=== PATIENT | female | born 1930 | race Caucasian/White ===

== ENCOUNTER 2016-09-21 18:19 | Emergency (ER) | payer OTHER ==
[2016-09-21 18:39] VITALS: BP 166/86
--- NOTE | 2016-09-21 19:30 | PROVIDER DOCUMENTATION ---
HPI-General Adult - General Chief Complaint: Fever Stated Complaint: COUGH, FEVER, FLU SX Time Seen by Provider: 09/21/16 18:51 Source: patient Allergies/Adverse Reactions: Patient Allergies Allergy/AdvReac Type Severity Reaction Status Date / Time codeine [Codeine] Allergy Severe ANAPHYLAXIS Verified 09/21/16 19:42 hydromorphone HCl * AdvReac Severe HALLUCINATI Verified 09/21/16 19:42 [From Dilaudid] ONS ketamine AdvReac Severe HALLUCINATI Verified 09/21/16 19:42 ONS nickel [Nickel] AdvReac Severe "I REJECT Verified 09/21/16 19:42 IT" oxycodone HCl * AdvReac Severe HALLUCINATI Verified 09/21/16 19:42 [From Percocet] ONS Home Medications: Home Medication List Medication Instructions Recorded Confirmed Last Taken Type ATORVAstatin [Lipitor] 20 mg PO QHS 05/26/12 09/21/16 09/20/16 22:10 History Levothyroxine [Synthroid] 150 microgm PO DAILY 05/26/12 09/21/16 09/20/16 07:30 History Aspirin/Calcium Carbonate/Mag 325 mg PO DAILY 01/31/14 09/21/16 09/20/16 07:30 History [Aspirin Buffered 325 mg Tab] Zolpidem [Ambien] 5 mg PO PRN #0 02/02/14 09/21/16 09/20/16 22:15 Rx Carvedilol [Coreg] 12.5 mg PO BID #0 tablet 06/12/14 09/21/16 09/20/16 22:10 Rx Nitroglycerin Sl [Nitroglycerin] 0.4 mg SL PRN PRN 07/01/14 09/21/16 01/16/16 History Amiodarone HCl [Pacerone] 400 mg PO BID 02/16/16 09/21/16 09/20/16 22:10 History Apixaban [Eliquis] 5 mg PO BID 02/16/16 09/21/16 09/20/16 22:10 History Isosorbide Mononitrate E.r. [Imdur] 30 mg PO DAILY 02/16/16 09/21/16 09/20/16 22 :10 History Metformin E.r. [Glucophage Xr] 1,500 mg PO DAILY 02/16/16 09/21/16 09/20/16 22: 10 History Amoxicillin/Pot Clavulanate 875 mg PO Q12HR #14 tablet 09/21/16 Unknown Rx [Augmentin] Ferrous Gluconate [Fergon] 240 mg PO DAILY 09/21/16 09/21/16 09/20/16 07:30 History Furosemide [Lasix] 40 mg PO BID 09/21/16 09/21/16 09/20/16 22:10 History Ondansetron [Zofran] 4 mg PO Q6H PRN PRN #20 tablet 09/21/16 Unknown Rx Potassium Chloride [Klor-Con] 20 meq PO DAILY 09/21/16 09/21/16 09/20/16 07:30 History Trazodone [Desyrel] 50 mg PO QHS 09/21/16 09/21/16 09/20/16 22:10 History - History of Present Illness -Gen Adult Nature of Presenting Problems: 86 y/o WF c/o cough, nausea, fever/chills x 1 day. Pt states had influenza vaccine; states sick with similar sxs. Denies any other sick contacts. No other sxs reported, including urinary sxs, V/D/C, abd. pain. Cough is not productive. Fever of 100F at home. Review of Systems - Adult - REVIEW OF SYSTEMS - ADULT Constitutional: reports: see HPI, chills, fever Eyes: reports: no symptoms reported. denies: blurred vision, double vision Ears, Nose, Mouth & Throat: reports: no symptoms reported. denies: ear pain, nose pain Cardiovascular: reports: no symptoms reported. denies: chest pain, palpitations Respiratory: reports: see HPI, cough. denies: shortness of breath Gastrointestinal: reports: see HPI, nausea. denies: abdominal pain, diarrhea, vomiting Genitourinary: reports: no symptoms reported. denies: dysuria, frequency Musculoskeletal: reports: no symptoms reported. denies: joint pain, joint swelling Integumentary: reports: no symptoms reported. denies: nail changes, rash Neurological: reports: no symptoms reported. denies: numbness, paresthesia Psychiatric: reports: no symptoms reported Endocrine: reports: no symptoms reported. denies: cold intolerance, heat intolerance Hematologic/Lymphatic: reports: no symptoms reported. denies: easy bruising, prolonged bleeding Allergic/Immunologic: reports: no symptoms reported All Other Systems: Reviewed and Negative Past History - Adult - PAST MEDICAL HISTORY-ADULT Review of Records: reports: Nursing Assessment Review, Medications Reviewed Major Childhood Illnesses: reports: history unknown Cardiovascular: reports: CAD, HTN, hyperlipidemia, pacemaker, other (internal heart monitor). denies: A-Fib (atrial flutter) Musculoskeletal: reports: other (gout) Endocrine/Immune: reports: Diabetes, thyroid disorder (hypo) Other Conditions: reports: other (Gout) - PRIOR SURGERIES/PROCEDURES Surgical/Procedure History: reports: appendectomy, cardiac stent, pacemaker, orthopedic (extremity) (ORIF left ankle), joint replacement (total knee and total hip), other (cataract removal; thyroidectomy) - PRIOR HOSPITALIZATIONS Prior Hospitalizations: reports: for similar symptoms - IMMUNIZATION STATUS Childhood Immunizations: UTD Flu Vaccine: UTD - FAMILY HISTORY Family History: reviewed, not pertinent Physical Exam-General - PHYSICAL EXAM-ADULT Initial Vital Signs Reviewed: Yes - CONSTITUTIONAL General Appearance: alert, mild distress - EYES Eyes: pink conjunctivae - HEAD, EARS, NOSE, MOUTH & THROAT HENMT: normocephalic/atraumatic, moist mucous membranes, pharynx normal - NECK Neck: normal inspection - RESPIRATORY Respiratory: lungs clear, normal breath sounds. negative: crackles, rales, rhonchi, stridor, wheezing - CARDIOVASCULAR Cardiovascular: regular rate, rhythm. negative: bradycardia, tachycardia - GASTROINTESTINAL (ABDOMEN) Abdominal Exam: normal bowel sounds, non tender, soft. negative: distended, guarding, rigid - MUSCULOSKELETAL Back Exam: normal inspection Extremity: normal gait - SKIN Integumentary: normal color, normal turgor, warm/dry - NEUROLOGIC Neurologic: negative: aphasia - PSYCHIATRIC Psych/Mental Status: normal mood/affect, normal thought content, normal thought process, oriented x 3 Progress - PLAN OF CARE/RESULTS Progress/Plan/Lab Results: Laboratory Tests 09/21/16 09/21/16 09/21/16 16:12 19:55 19:55 WBC 9.24 RBC 4.46 Hgb 9.6 L Hct 32.9 L MCV 73.8 L MCH 21.5 L MCHC 29.2 L RDW Std Deviation 21.2 H Plt Count 212 MPV 10.0 Immature Gran % (Auto) 1.4 H Neut % (Auto) 86.1 H Lymph % (Auto) 4.5 L [place] % (Auto) 7.4 Eos % (Auto) 0.2 Baso % (Auto) 0.4 Immature Gran # (Auto) 0.13 H Neut # (Auto) 7.95 H Lymph # (Auto) 0.42 L [place] # (Auto) 0.68 H Eos # (Auto) 0.02 Baso # (Auto) 0.04 Sodium 134 L Potassium 2.7 L Chloride 86 L Carbon Dioxide 31 Anion Gap 17 BUN 10 Creatinine 0.8 Estimated GFR/1.73 m2 > 60 BUN/Creatinine Ratio 13 Glucose 154 H Calculated Osmolality 270 Calcium 8.4 L Total Bilirubin 1.34 H AST 106 H ALT 78 H Alkaline Phosphatase 78 Total Protein 7.2 Albumin 4.1 Globulin 3.1 Albumin/Globulin Ratio 1.3 Urine Source CLEAN CATCH Urine Color YELLOW Urine Turbidity CLEAR Urine pH 7.0 Ur Specific [place] 1.007 Urine Protein 30 A Ur Glucose (Stick) NEGATIVE Ur Ketones (Stick) NEGATIVE Urine Blood NEGATIVE Urine Nitrite NEGATIVE Urine Bilirubin NEGATIVE Urobilinogen Dipstick NORMAL Urine Leukocytes NEGATIVE Urine WBC (Auto) <10 Urine RBC (Auto) <10 U Epithel Cells (Auto) <10 Urine Bacteria (Auto) NEGATIVE Orders Category Date Time Status ABDOMEN FLAT/UPRIGHT [RAD] Stat Exams 09/21/16 19:30 Completed CHEST-2 VIEWS [RAD] Stat Exams 09/21/16 19:28 Completed CBC WITH ELECTRONIC DIFF [HEME] Stat Lab 09/21/16 19:55 Completed COMPREHENSIVE METABOLIC PANEL [CHEM] Stat Lab 09/21/16 19:55 Completed Flu Swab [INFLUENZA SCREEN A/B] Stat Lab 09/21/16 18:38 Completed URINALYSIS W/POSS RFLX CULT [URINALYSIS] Stat Lab 09/21/16 16:12 Completed Amoxicillin [Amoxil] Med 09/21/16 21:17 Discontinued 750 mg PO NOW ONE Ondansetron Odt [Zofran Odt] Med 09/21/16 21:16 Discontinued 4 mg PO NOW ONE Vital Signs Temp Pulse Resp BP Pulse Ox 09/21/16 18:36 98.7 F 79 18 166/86 99 codeine [Codeine] Allergy (Severe, Verified 09/21/16 19:42) ANAPHYLAXIS hydromorphone HCl * [From Dilaudid] Adverse Reaction (Severe, Verified 09/21/16 19:42) HALLUCINATIONS ketamine Adverse Reaction (Severe, Verified 09/21/16 19:42) HALLUCINATIONS nickel [Nickel] Adverse Reaction (Severe, Verified 09/21/16 19:42) "I REJECT IT" oxycodone HCl * [From Percocet] Adverse Reaction (Severe, Verified 09/21/16 19: 42) HALLUCINATIONS ATORVAstatin [Lipitor] 20 mg PO QHS 05/26/12 Levothyroxine [Synthroid] 150 microgm PO DAILY 05/26/12 Aspirin/Calcium Carbonate/Mag [Aspirin Buffered 325 mg Tab] 325 mg PO DAILY Zolpidem [Ambien] 5 mg PO PRN #0 02/02/14 Carvedilol [Coreg] 12.5 mg PO BID #0 tablet 06/12/14 Nitroglycerin Sl [Nitroglycerin] 0.4 mg SL PRN PRN 07/01/14 Amiodarone HCl [Pacerone] 400 mg PO BID 02/16/16 Apixaban [Eliquis] 5 mg PO BID 02/16/16 Isosorbide Mononitrate E.r. [Imdur] 30 mg PO DAILY 02/16/16 Metformin E.r. [Glucophage Xr] 1,500 mg PO DAILY 02/16/16 Amoxicillin/Pot Clavulanate [Augmentin] 875 mg PO Q12HR #14 tablet 09/21/16 Ferrous Gluconate [Fergon] 240 mg PO DAILY 09/21/16 Furosemide [Lasix] 40 mg PO BID 09/21/16 Ondansetron [Zofran] 4 mg PO Q6H PRN PRN #20 tablet 09/21/16 Potassium Chloride [Klor-Con] 20 meq PO DAILY 09/21/16 Trazodone [Desyrel] 50 mg PO QHS 09/21/16 Laboratory 09/21/16 09/21/16 09/21/16 19:55 19:55 16:12 WBC 9.24 RBC 4.46 Hgb 9.6 L Hct 32.9 L MCV 73.8 L MCH 21.5 L MCHC 29.2 L RDW Std Deviation 21.2 H Plt Count 212 MPV 10.0 Immature Gran % (Auto) 1.4 H Neut % (Auto) 86.1 H Lymph % (Auto) 4.5 L [place] % (Auto) 7.4 Eos % (Auto) 0.2 Baso % (Auto) 0.4 Immature Gran # (Auto) 0.13 H Neut # (Auto) 7.95 H Lymph # (Auto) 0.42 L [place] # (Auto) 0.68 H Eos # (Auto) 0.02 Baso # (Auto) 0.04 Sodium 134 L Potassium 2.7 L Chloride 86 L Carbon Dioxide 31 Anion Gap 17 BUN 10 Creatinine 0.8 Estimated GFR/1.73 m2 > 60 BUN/Creatinine Ratio 13 Glucose 154 H Calculated Osmolality 270 Calcium 8.4 L Total Bilirubin 1.34 H AST 106 H ALT 78 H Alkaline Phosphatase 78 Total Protein 7.2 Albumin 4.1 Globulin 3.1 Albumin/Globulin Ratio 1.3 Urine Source CLEAN CATCH Urine Color YELLOW Urine Turbidity CLEAR Urine pH 7.0 Ur Specific [place] 1.007 Urine Protein 30 A Ur Glucose (Stick) NEGATIVE Ur Ketones (Stick) NEGATIVE Urine Blood NEGATIVE Urine Nitrite NEGATIVE Urine Bilirubin NEGATIVE Urobilinogen Dipstick NORMAL Urine Leukocytes NEGATIVE Urine WBC (Auto) <10 Urine RBC (Auto) <10 U Epithel Cells (Auto) <10 Urine Bacteria (Auto) NEGATIVE Discussed pt with dr. Tsai, including her labwork. Dr. Tsai reviewed Xrays in detail and states that she can be sent home with f/u with PCP; unsure of the object in LUQ. Discussed with pt, including f/u. - XRAY 1 XRAY Study: Chest XRAY Interpretation: No PNA 2 XRAY Study: Abdomen XRAY Interpretation: calcified abnormality in LUQ Departure - Departure Time of Disposition Order: 21:18 DIAGNOSIS: Abnormal abdominal x-ray, Bronchitis, Nausea Disposition: HOME 01 Certified Medical Emergency: Emergent Condition: Stable Additional Instructions: Follow up with specialist/PCP for further management. Take medications as directed. ED Follow Up Instructions: You have been treated by a care provider in the Emergency Department. These instructions are being provided to you so you can have an understanding of how to care for yourself upon discharge. Upon discharge from the Emergency Department, you are responsible for making arrangements for follow-up care by a physician of your choice. Take all prescribed medications as directed. Return to the Emergency Department immediately for any new or worsening symptoms. You may call the Physician Referral phone number at [phone] to obtain a list of Physicians who are taking new patients. Prescriptions: Amoxicillin/Pot Clavulanate [Augmentin] 875 mg PO Q12HR #14 tablet Ondansetron [Zofran] 4 mg PO Q6H PRN PRN #20 tablet PRN Reason: Nausea Referrals: Keith Varghese MD [Primary Care Provider] - Silvio Jade MD [STAFF PHYSICIAN] - Forms: Return to School/Parent Work Instructions: Nausea, Adult, Abdominal Pain, Adult, Acute Bronchitis, Easy-to- Read Attestation - Physician/ LEON Attestation Patient care was provided by Advanced Practice Provider:: Yes Advanced Practice Provider:: Pilar Wallace Advanced Practice Provider documentation review:: The Mid-level provider documentation, treatment plan and medical decision making was reviewed by the physician who agrees with all treatment and medical decision making by the MLP.
[2016-09-21 20:17] LABS: URINE CULTURE NEEDED? NO; URINE MICRO REVIEW NEEDED? NO; URINE SOURCE CLEAN CATCH
[2016-09-21 20:25] LABS: BILIRUBIN URINE NEGATIVE (NEGATIVE); BLOOD URINE NEGATIVE (NEGATIVE); COLOR YELLOW; GLUCOSE URINE NEGATIVE (NEGATIVE); LEUKOCYTES URINE NEGATIVE (NEGATIVE); NITRITE URINE NEGATIVE (NEGATIVE); PROTEIN URINE 30 mg/dL (NEGATIVE); SP GRAVITY URINE 1.007; TURBIDITY URINE CLEAR (CLEAR); UROBILINOGEN URINE NORMAL (NORMAL)
[2016-09-21 20:26] LABS: UR EPITHELIAL CELLS <10 /HPF (<10); URINE BACTERIA NEGATIVE /HPF; URINE RBC <10 /HPF (<10); URINE WBC <10 /HPF (<10)
[2016-09-21 20:31] LABS: BASO% 0.4 % (0.0-0.8); EOS# 0.02 X1000 (0.0-0.7); EOS% 0.2 % (0.0-10.0); HEMATOCRIT 32.9 % (37.0-47.0); HEMOGLOBIN 9.6 g/dL (12.0-16.0); IMM GRAN# 0.13 X1000 (0.0-0.04); IMM GRAN% 1.4 % (0.0-0.5); LYMPH# 0.42 X1000 (1.2-3.4); LYMPH% 4.5 % (20.5-51.1); MANUAL DIFF NEEDED? NO; MCH 21.5 PG (27-31); MCHC 29.2 g/dL (33-37); MCV 73.8 FL (81-99); MONO# 0.68 X1000 (0.11-0.59); MONO% 7.4 % (1.7-9.3); NEUT% 86.1 % (42.2-75.2); PLT 212 X1000 (130-400); RBC 4.46 XMIL (4.2-5.4)
[2016-09-21 20:44] LABS: AGAP 17; ALBUMIN 4.1 g/dL (3.5-5.0); ALKALINE PHOSPHATASE 78 U/L (32-104); BUN 10 mg/dL (8-22); CALCIUM 8.4 mg/dL (8.8-10.2); CHLORIDE 86 mmol/L (98-107); COSMO 270; GOT 106 U/L (10-30); GPT 78 U/L (10-36); POTASSIUM 2.7 mmol/L (3.5-5.1); SODIUM 134 mmol/L (136-145); TCO2 31 mmol/L (25-35); TOTAL BILIRUBIN 1.34 mg/dL (0.20-1.00); TOTAL PROTEIN 7.2 g/dL (6.3-8.3)
[2016-09-21] MEDS ORDERED: ZOFRAN ODT PO ONE (21:16)
[2016-09-21] MEDS ORDERED: AMOXIL PO ONE (21:17)
--- NOTE | 2016-09-22 07:58 | Diag Imaging Result Document ---
PROCEDURE NAME: CHEST-2 VIEWS - 09/21/2016 FRONTAL AND LATERAL CHEST, TWO VIEWS: COMPARISON: 05/27/2016. FINDINGS: The lungs are well expanded. The patient has a left sided pacemaker. The heart is mildly enlarged. The vessels are not distended. No pleural effusions. There are no infiltrates. IMPRESSION: 1. No pneumonia. 2. Cardiomegaly. 3. Questionable small nodule in the right lung base.
--- NOTE | 2016-09-22 09:02 | Diag Imaging Result Document ---
PROCEDURE NAME: ABDOMEN FLAT/UPRIGHT - 09/21/2016 FLAT AND UPRIGHT RADIOGRAPH OF THE ABDOMEN: COMPARISON: None available. FINDINGS: There are nonspecific bowel gas and stool patterns. There is no obstructive bowel pattern identified. There is no evidence of large-volume free abdominal gas. There are dense splenic artery calcifications. There has been prior left hip arthroplasty. There are degenerative changes involving the lower lumbar spine and the right hip. IMPRESSION: Nonspecific abdomen.
== END 2016-09-21 21:56 | disposition home or self-care (01) ==
LOC: ED 18:19
DX: J40 Bronchitis, not specified as acute or chronic (principal); R11.0 Nausea; R93.5 Abnormal findings on diagnostic imaging of other abdominal regions, including retroperitoneum; R50.9 Fever, unspecified; R05 Cough; I25.10 Atherosclerotic heart disease of native coronary artery without angina pectoris; I10 Essential (primary) hypertension; E78.5 Hyperlipidemia, unspecified; Z79.899 Other long term (current) drug therapy; E11.9 Type 2 diabetes mellitus without complications; E07.9 Disorder of thyroid, unspecified; Z79.01 Long term (current) use of anticoagulants; Z79.82 Long term (current) use of aspirin; Z95.0 Presence of cardiac pacemaker; Z95.5 Presence of coronary angioplasty implant and graft; Z96.659 Presence of unspecified artificial knee joint; Z96.649 Presence of unspecified artificial hip joint
CPT/HCPCS: 71020; 74020; 80053; 81001; 85025; 87804

== ENCOUNTER 2016-09-27 22:17 | Inpatient (IN) | payer OTHER ==
--- NOTE | 2016-09-27 22:25 | PROVIDER DOCUMENTATION ---
HPI-Chest Pain - General Stated Complaint: ABD PAIN Time Seen by Provider: 09/27/16 22:18 Source: patient, EMS Allergies/Adverse Reactions: Patient Allergies Allergy/AdvReac Type Severity Reaction Status Date / Time codeine [Codeine] Allergy Severe ANAPHYLAXIS Verified 09/21/16 19:42 hydromorphone HCl * AdvReac Severe HALLUCINATI Verified 09/21/16 19:42 [From Dilaudid] ONS ketamine AdvReac Severe HALLUCINATI Verified 09/21/16 19:42 ONS nickel [Nickel] AdvReac Severe "I REJECT Verified 09/21/16 19:42 IT" oxycodone HCl * AdvReac Severe HALLUCINATI Verified 09/21/16 19:42 [From Percocet] ONS Home Medications: Home Medication List Medication Instructions Recorded Confirmed Last Taken Type ATORVAstatin [Lipitor] 20 mg PO QHS 05/26/12 09/21/16 09/20/16 22:10 History Levothyroxine [Synthroid] 150 microgm PO DAILY 05/26/12 09/21/16 09/20/16 07:30 History Aspirin/Calcium Carbonate/Mag 325 mg PO DAILY 01/31/14 09/21/16 09/20/16 07:30 History [Aspirin Buffered 325 mg Tab] Zolpidem [Ambien] 5 mg PO PRN #0 02/02/14 09/21/16 09/20/16 22:15 Rx Carvedilol [Coreg] 12.5 mg PO BID #0 tablet 06/12/14 09/21/16 09/20/16 22:10 Rx Nitroglycerin Sl [Nitroglycerin] 0.4 mg SL PRN PRN 07/01/14 09/21/16 01/16/16 History Amiodarone HCl [Pacerone] 400 mg PO BID 02/16/16 09/21/16 09/20/16 22:10 History Apixaban [Eliquis] 5 mg PO BID 02/16/16 09/21/16 09/20/16 22:10 History Isosorbide Mononitrate E.r. [Imdur] 30 mg PO DAILY 02/16/16 09/21/16 09/20/16 22 :10 History Metformin E.r. [Glucophage Xr] 1,500 mg PO DAILY 02/16/16 09/21/1609/20/17 22: 10 History Amoxicillin/Pot Clavulanate 875 mg PO Q12HR #14 tablet 09/21/16 Unknown Rx [Augmentin] Ferrous Gluconate [Fergon] 240 mg PO DAILY 09/21/16 09/21/16 09/20/16 07:30 History Furosemide [Lasix] 40 mg PO BID 09/21/16 09/21/16 09/20/16 22:10 History Ondansetron [Zofran] 4 mg PO Q6H PRN PRN #20 tablet 09/21/16 Unknown Rx Potassium Chloride [Klor-Con] 20 meq PO DAILY 09/21/16 09/21/16 09/20/16 07:30 History Trazodone [Desyrel] 50 mg PO QHS 09/21/16 09/21/16 09/20/16 22:10 History - History of Present Illness-CP Nature of Presenting Problem: Pt is a 86 yof who presents to ER via EMS with CC of C/P to lower abdominal pain. Pt reports that she was seen in the ED on Wednesday and diagnosed with a URI , saw her PCP on Wednesday (Dr. Varghese) who told pt to stop taking the antibiotics she was given in ED. Pt now complains of dry, non-productive cough and pain on deep inspiration. Pt does complain of N all day, but denies V/D/F. Location: reports: other (generalized) Chest Pain Radiation: reports: no radiation Severity in ED: moderate Onset/Duration: 1 week ago Timing: still present Associated Symptoms: reports: abdominal pain, back pain, nausea. denies: diaphoresis, dizziness, edema, fatigue, fever/chills, headache, heartburn, rash , shortness of breath, swelling/lump in chest, syncope, vomiting, weakness Recently Seen Here or By Another Healthcare Provider: Yes Review of Systems - Adult - REVIEW OF SYSTEMS - ADULT Constitutional: denies: chills, fever, fatique, night sweats, weight gain, weight loss Eyes: reports: no symptoms reported Ears, Nose, Mouth & Throat: reports: no symptoms reported Cardiovascular: reports: chest pain. denies: edema, heart murmur, irregular heart rate, orthopnea, palpitations, poor circulation, PND, syncope Respiratory: reports: cough, dyspnea on exertion. denies: chronic cough, excessive sputum production, hemoptysis, pleurisy, shortness of breath, wheezing Gastrointestinal: reports: nausea. denies: abdominal pain, hematemesis, constipation, diarrhea, difficulty swallowing, frequent heartburn, poor appetite , rectal bleeding, vomiting Genitourinary: reports: no symptoms reported Musculoskeletal: reports: no symptoms reported Integumentary: reports: no symptoms reported Neurological: reports: no symptoms reported Psychiatric: reports: no symptoms reported Endocrine: reports: no symptoms reported Hematologic/Lymphatic: reports: no symptoms reported Allergic/Immunologic: reports: no symptoms reported All Other Systems: Reviewed and Negative Past History - Adult - PAST MEDICAL HISTORY-ADULT Review of Records: reports: Nursing Assessment Review, Medications Reviewed Cardiovascular: reports: CAD, HTN, hyperlipidemia, pacemaker, other (internal heart monitor). 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 negative: no apparent distress - RESPIRATORY Respiratory: chest non-tender, lungs clear, decreased breath sounds (RLL), other (hyperventilating). negative: normal breath sounds, wheezing - CARDIOVASCULAR Cardiovascular: normal peripheral pulses, regular rate, rhythm. negative: bradycardia, tachycardia, irregularly irregular - GASTROINTESTINAL (ABDOMEN) Abdominal Exam: normal bowel sounds, soft, tenderness (RUQ). negative: non tender - MUSCULOSKELETAL Back Exam: no CVA tenderness, no vertebral tenderness. negative: CVA tenderness , decreased range of motion Extremity: normal range of motion, non-tender, normal gait, pedal edema (+2 pitting edema bilaterally). negative: erythema, inflammation, tenderness - SKIN Integumentary: swelling (+2 bilateral LE pitting edema) - NEUROLOGIC Neurologic: grossly normal, no motor/sensory deficits. negative: facial droop, focal weakness, motor weakness, sensory deficit - PSYCHIATRIC Psych/Mental Status: normal thought content, normal thought process, oriented x 3, depressed affect. negative: normal mood/affect Progress - PLAN OF CARE/RESULTS Progress/Plan/Lab Results: Vital Signs - 24 hr 09/27/16 22:26 Temperature 97.7 F Pulse Rate 71 Respiratory 22 Rate Blood Pressure 182/96 O2 Sat by Pulse 100 Oximetry Orders Category Date Time Status Saline Loc DIRECTED Care 09/27/16 22:32 Active NPO Diet 09/27/16 22:32 Active CHEST-2 VIEWS [RAD] Stat Exams 09/27/16 22:[address] ABD/PELVIS W/ IV CONT ONLY [CT] Stat Exams 09/27/16 22:34 Taken AMYLASE [CHEM] Stat Lab 09/27/16 22:40 Completed BLOOD CULTURE [BLDCUL] Stat Lab 09/27/16 22:33 Ordered CBC WITH ELECTRONIC DIFF [HEME] Stat Lab 09/27/16 22:40 Completed COMPREHENSIVE METABOLIC PANEL [CHEM] Stat Lab 09/27/16 22:40 Completed Flu Swab [INFLUENZA SCREEN A/B] Stat Lab 09/28/16 01:42 Received LIPASE [CHEM] Stat Lab 09/27/16 22:40 Completed TROPONIN T Stat Lab 09/27/16 22:40 Completed URINALYSIS W/POSS RFLX CULT [URINALYSIS] Stat Lab 09/27/16 22:50 Completed URINE CULTURE [RM] Routine Lab 09/27/16 23:52 Received EKG [EKG] Stat Ther 09/27/16 22:33 Ordered Laboratory Tests 09/27/16 09/27/16 09/27/16 22:40 22:40 22:40 WBC 8.25 RBC 4.37 Hgb 9.6 L Hct 32.4 L MCV 74.1 L MCH 22.0 L MCHC 29.6 L RDW Std Deviation 21.9 H Plt Count 188 MPV 10.9 H Immature Gran % (Auto) 1.9 H Neut % (Auto) 75.0 Lymph % (Auto) 13.6 L [place] % (Auto) 8.6 Eos % (Auto) 0.4 Baso % (Auto) 0.5 Immature Gran # (Auto) 0.16 H Neut # (Auto) 6.19 Lymph # (Auto) 1.12 L [place] # (Auto) 0.71 H Eos # (Auto) 0.03 Baso # (Auto) 0.04 Sodium 132 L Potassium 4.3 Chloride 90 L Carbon Dioxide 29 Anion Gap 13 BUN 13 Creatinine 0.8 Estimated GFR/1.73 m2 > 60 BUN/Creatinine Ratio 16 Glucose 141 H Calculated Osmolality 267 Calcium 8.8 Total Bilirubin 0.98 AST 84 H ALT 109 H Alkaline Phosphatase 89 Troponin T < 0.010 Total Protein 6.8 Albumin 3.6 Globulin 3.2 Albumin/Globulin Ratio 1.1 Amylase 47 Lipase 53 Urine Source Urine Color Urine Turbidity Urine pH Ur Specific [place] Urine Protein Ur Glucose (Stick) Ur Ketones (Stick) Urine Blood Urine Nitrite Urine Bilirubin Urobilinogen Dipstick Urine Leukocytes Urine WBC (Auto) Urine RBC (Auto) U Epithel Cells (Auto) Urine Bacteria (Auto) 09/27/16 22:50 WBC RBC Hgb Hct MCV MCH MCHC RDW Std Deviation Plt Count MPV Immature Gran % (Auto) Neut % (Auto) Lymph % (Auto) [place] % (Auto) Eos % (Auto) Baso % (Auto) Immature Gran # (Auto) Neut # (Auto) Lymph # (Auto) [place] # (Auto) Eos # (Auto) Baso # (Auto) Sodium Potassium Chloride Carbon Dioxide Anion Gap BUN Creatinine Estimated GFR/1.73 m2 BUN/Creatinine Ratio Glucose Calculated Osmolality Calcium Total Bilirubin AST ALT Alkaline Phosphatase Troponin T Total Protein Albumin Globulin Albumin/Globulin Ratio Amylase Lipase Urine Source CLEAN CATCH Urine Color YELLOW Urine Turbidity CLEAR Urine pH 7.0 Ur Specific [place] 1.016 Urine Protein 200 A Ur Glucose (Stick) NEGATIVE Ur Ketones (Stick) NEGATIVE Urine Blood NEGATIVE Urine Nitrite NEGATIVE Urine Bilirubin NEGATIVE Urobilinogen Dipstick 6 A Urine Leukocytes TRACE A Urine WBC (Auto) <10 Urine RBC (Auto) <10 U Epithel Cells (Auto) <10 Urine Bacteria (Auto) NEGATIVE - XRAY 1 XRAY: Bilateral XRAY Study: Chest Impression: See EMR Report XRAY Interpretation: Smal RLL infiltrate - CT/MRI 1 CT Study: Abdomen, Pelvis Impression: See EMR Report (Evidence of acute cholecystitis; Cystic mass in the L ovary could be benign or malignant. Indeterminate nodule in the R lung base with evidence of mild edema or chronic interstitial lung disease. Consider follow up to exclude malignancy.) CT Results: See report - CONSULTS/PCP/HOSPITALIST Notification #1 *Consult/PCP/Hospitalist*: Dr. Abraham (Hospitalist) #2 Consult: Dr. Morgan (Surgeon) Departure - Departure Time of Disposition Order: 03:04 DIAGNOSIS: Cholecystitis, acute Abdominal pain Qualifiers: Abdominal location: right upper quadrant Qualified Code(s): R10.11 - Right upper quadrant pain Disposition: ADMITTED INPATIENT 09 Certified Medical Emergency: Emergent Condition: Stable Attestation - Scribe Verification/Attestation Scribe:: Tommy Presley Acting as Scribe for:: Tanmay Liao Scribe documention review:: This chart was documented by a scribe and accurately reflects the service the provider performed and the decisions made by the provider.
[2016-09-27 22:56] LABS: URINE MICRO REVIEW NEEDED? NO; URINE SOURCE CLEAN CATCH
[2016-09-27 22:59] LABS: BASO% 0.5 % (0.0-0.8); EOS# 0.03 X1000 (0.0-0.7); EOS% 0.4 % (0.0-10.0); HEMATOCRIT 32.4 % (37.0-47.0); HEMOGLOBIN 9.6 g/dL (12.0-16.0); IMM GRAN# 0.16 X1000 (0.0-0.04); IMM GRAN% 1.9 % (0.0-0.5); LYMPH# 1.12 X1000 (1.2-3.4); LYMPH% 13.6 % (20.5-51.1); MANUAL DIFF NEEDED? NO; MCHC 29.6 g/dL (33-37); MCV 74.1 FL (81-99); MONO# 0.71 X1000 (0.11-0.59); MONO% 8.6 % (1.7-9.3); MPV 10.9 FL (7.4-10.4); PLT 188 X1000 (130-400); RBC 4.37 XMIL (4.2-5.4)
[2016-09-27 23:00] LABS: BILIRUBIN URINE NEGATIVE (NEGATIVE); BLOOD URINE NEGATIVE (NEGATIVE); COLOR YELLOW; GLUCOSE URINE NEGATIVE (NEGATIVE); LEUKOCYTES URINE TRACE (NEGATIVE); NITRITE URINE NEGATIVE (NEGATIVE); PROTEIN URINE 200 mg/dL (NEGATIVE); SP GRAVITY URINE 1.016; TURBIDITY URINE CLEAR (CLEAR); UROBILINOGEN URINE 6 mg/dL (NORMAL)
[2016-09-27 23:01] LABS: UR EPITHELIAL CELLS <10 /HPF (<10); URINE BACTERIA NEGATIVE /HPF; URINE CULTURE NEEDED? YES; URINE RBC <10 /HPF (<10); URINE WBC <10 /HPF (<10)
[2016-09-27 23:17] LABS: AGAP 13; ALBUMIN 3.6 g/dL (3.5-5.0); ALKALINE PHOSPHATASE 89 U/L (32-104); AMYLASE 47 U/L (20-200); BUN 13 mg/dL (8-22); CALCIUM 8.8 mg/dL (8.8-10.2); CHLORIDE 90 mmol/L (98-107); COSMO 267; GOT 84 U/L (10-30); GPT 109 U/L (10-36); LIPASE 53 U/L (13-60); POTASSIUM 4.3 mmol/L (3.5-5.1); SODIUM 132 mmol/L (136-145); TCO2 29 mmol/L (25-35); TOTAL BILIRUBIN 0.98 mg/dL (0.20-1.00); TOTAL PROTEIN 6.8 g/dL (6.3-8.3)
[2016-09-28] MEDS ORDERED: ZOSYN 4.5 GM/NS 100 ML IV ONE (03:16)
[2016-09-28] MEDS ORDERED: ZOFRAN IV ONE (03:17)
[2016-09-28] MEDS ORDERED: MORPHINE IV ONE (03:17)
[2016-09-28 05:37] LABS: HEMOGLOBIN A1C 5.3 % (4.8-6.0)
[2016-09-28 06:01] LABS: INR 0.98
[2016-09-28] MEDS ORDERED: LASIX IV ONE (06:17)
[2016-09-28] MEDS ORDERED: DUONEB (A & A) INH PRN (06:54)
[2016-09-28] MEDS ORDERED: MORPHINE IV PRN (07:05)
[2016-09-28] MEDS ORDERED: IMDUR PO SCH ×3 (09:00→16:00)
[2016-09-28] MEDS: HUMALOG SUBQ SCH ×4 (09:10→21:17)
[2016-09-28 09:13] LABS: AGAP 15; BUN 10 mg/dL (8-22); CALCIUM 9.2 mg/dL (8.8-10.2); CHLORIDE 91 mmol/L (98-107); COSMO 274; IRON SATURATION 11 %; MAGNESIUM 1.3 mg/dL (1.5-2.7); POTASSIUM 3.9 mmol/L (3.5-5.1); SODIUM 137 mmol/L (136-145); TCO2 31 mmol/L (25-35); TIBC 285 ug/dL; TOTAL IRON 31 ug/dL (49-151); UNBOUND IRON 254 ug/dL (112-346)
--- NOTE | 2016-09-28 09:14 | EKG Report ---
Test Performed on : 09/28/2016 04:25:24 AM Test Reason : CP Blood Pressure : / mmHG Vent. Rate : 086 BPM Atrial Rate : 086 BPM P-R Int : 202 ms QRS Dur : 098 ms QT Int : 444 ms P-R-T Axes : 099 -09 088 degrees QTc Int : 531 ms Normal sinus rhythm. Nonspecific ST and T wave abnormality Abnormal ECG When compared with ECG of 24-OCT-2014 09:26, premature ventricular complexes. are no longer present premature atrial complexes. are no longer present Nonspecific T wave abnormality no longer evident in Inferior leads T wave inversion no longer evident in Anterolateral leads QT has lengthened Unconfirmed Result
--- NOTE | 2016-09-28 09:24 | HISTORY AND PHYSICAL ---
PRIMARY CARE PROVIDER: Keith Varghese MD CHIEF COMPLAINT: Abdominal pain. HISTORY OF PRESENT ILLNESS: Ms. Bell is an 86-year-old female who presented to the [facility] with complaints of abdominal pain in her right upper quadrant. She reports that this pain began approximately on Wednesday, 5 days ago. She reports that the pain is mainly located in her right upper quadrant though it does radiate around to her right flank and right back. She describes the pain as sore in nature and also states "She feels like her stomach is going to pop". She reports that the pain is constant. She does have associated symptoms of nausea though denies any vomiting or diarrhea. The patient was seen in the E.R. approximately one week ago last Wednesday and was diagnosed with bronchitis. She was given the antibiotic Augmentin. The patient reports that she did see Dr. Varghese in his office on Wednesday after being seen in the E.R. and he reevaluated her and discontinued her antibiotics at that time. The patient reports that her abdominal pain that she presented to the E.R. complaining of aliyah started approximately two days after her E.R. visit though she stated that she contributed her abdominal pain to coughing that she was having related to her bronchitis. The patient still at this time does report a nonproductive wet cough. She reported a fever on Wednesday approximately 1 week ago but denies any fever, body aches, or chills since. Also, the patient reports that approximately 1 month ago she began having bilateral lower extremity edema and that [address] Varghese placed her on Lasix 20 mg twice daily though today in the E.R. the patient does appear to have some crackles in bilateral lung bases as well as was ranging from 91% to 94% on room air. She has since been placed on a nasal cannula at 2 L. The patient does not have any JVD noted upon examination. At this time she denies any headache, dizziness, chest pain, shortness of breath, dysuria, urinary frequency, or pain, numbness, or tingling in the extremities. Upon evaluation in the E.R. a CT of the abdomen and pelvis with IV contrast was performed which did show cholelithiasis with gallbladder wall thickening and a small amount of surrounding fluid. There was no biliary obstruction. This was the impression of acute cholecystitis. Also, on the patient's chest x-ray there was some mild bilateral pulmonary edema as well as possible questionable right lower lobe pneumonia. At this time, the patient will be admitted for further evaluation of her acute cholecystitis. REVIEW OF SYSTEMS: A 14 point review of systems was conducted with the patient and all were negative except for pertinent positives mentioned above in the HPI. PAST MEDICAL HISTORY: 1. Coronary artery disease, status-post cardiac stent placement times 6. 2. History of myocardial infarction. 3. History of atrial fibrillation. 4. History of sick sinus syndrome. 5. Pacemaker placement. 6. Hypertension. 7. Hyperlipidemia. 8. Diabetes mellitus type 2. 9. Thyroid disease status-post thyroidectomy. 10.Gastroesophageal reflux disease. PAST SURGICAL HISTORY: 1. Cardiac stent placement times 6. 2. Pacemaker placement. 3. Thyroidectomy. 4. Left ankle surgery. 5. Right total knee replacement. 6. Left hip replacement. SOCIAL HISTORY: The patient is and lives with her . She denies any past or present alcohol, tobacco, or illicit drug use. FAMILY HISTORY: Positive for hypertension and coronary artery disease. ALLERGIES: The patient reports allergies to codeine, hydromorphone, nickel, and oxycodone as well as ketamine. HOME MEDICATIONS: 1. Amiodarone 400 mg p.o. at bedtime. 2. Eliquis 5 mg p.o. b.i.d.. 3. Vitamin C 1,000 mg p.o. daily. 4. Aspirin 325 mg p.o. daily. 5. Lipitor 20 mg p.o. at bedtime. 6. Coreg 12.5 mg p.o. b.i.d.. 7. Ferrous gluconate 240 mg p.o. daily. 8. Lasix 40 mg p.o. b.i.d.. 9. Imdur 30 mg p.o. daily. 10.Synthroid 150 mcg p.o. daily. 11.Metformin extended release 750 mg p.o. b.i.d.. 12.Potassium chloride 20 mEq p.o. daily. 13.Trazodone 50 mg p.o. at bedtime. 14.Ambien 5 mg p.o. p.r.n.. DIAGNOSTIC DATA AND LABORATORY RESULTS: White blood cell count is 8.2, hemoglobin 9.6, hematocrit 32.4, MCV 74.1, and platelet count 188. PT is 10, INR 0.98, and PTT 25. Sodium is 132, potassium 4.3, chloride 90, bicarb 29, BUN 13, creatinine 0.8, and glucose 141. Hemoglobin A1c is 5.3. Calcium is 8.8. Total bilirubin is 0.98, AST 84, ALT 109, and alkaline phosphatase 89. Troponin is less than 0.01. ProBNP is 2,201. Amylase is 47 and lipase 53. Urinalysis obtained via clean catch was positive for protein and trace leukocytes but was otherwise normal. EKG showed normal sinus rhythm with a nonspecific ST and T wave abnormality at a rate of 86. QTc was 531. CT of the abdomen and pelvis showed acute cholecystitis. Also noted was a nodular density in the right middle lobe that is indeterminate. There were also abnormal linear interstitial and patchy densities in both lung bases which could be mild edema or chronic interstitial lung disease. There is also a cystic mass in the left ovary which could be benign or malignant. Radiology did recommend to consider follow up to exclude malignancy. Also noted was a small benign cyst in the inferior left kidney. There is asymmetric left renal atrophy which may be associated with atherosclerotic renal artery stenosis. There was borderline aneurysmal dilatation of the infrarenal abdominal aorta though no dissection was present. Chest x-ray did show evidence of possible bilateral mild edema and possible right lower lobe pneumonia. We are awaiting official radiology overread. PHYSICAL EXAMINATION: VITAL SIGNS: Temperature is 98.2, heart rate 87, respirations 18, and blood pressure 174/105. Oxygen saturation is 94% on nasal cannula at 2 L. GENERAL: Ms. Bell is a very pleasant elderly 86-year-old female who is resting in the E.R. stretcher. She was no acute distress. She was awake, alert, and able to answer all questions appropriately. HEENT: The head is atraumatic, normocephalic. Pupils are equal, round, and reactive to light. They were 3 mm bilaterally and brisk. Sub-conjunctivae are slightly pale. Oral mucosa is slightly dry. Oropharynx is clear. NECK: Supple. Trachea is midline. No JVD noted. CARDIOVASCULAR: The patient has normal S1, S2. There is a slight systolic murmur noted though no other rubs or gallops are noted. The patient has a regular rate and rhythm. PULMONARY: The patient has symmetrical chest expansion bilaterally. Lungs sounds in bilateral full lung hartman are clear though there was crackles noted in bilateral lower lung hartman. ABDOMEN: Soft. The patient does report some slight tenderness in the right upper quadrant as well as the right flank and right mid back though she denies any rebound tenderness. Bowel sounds were present in all four quadrants. EXTREMITIES: The patient does have 2+ pitting edema noted in bilateral lower extremity from approximately mid calf down. There are no other signs of edema, cyanosis, or clubbing present in the extremities. Pulse, motor, and sensory is intact in all extremities as well. Pedal pulses are 3+ bilaterally. INTEGUMENTARY: The patient's skin is pink, warm, dry, and intact. No lesions or sores noted. NEUROLOGICAL: The patient is alert and oriented to person, place, time, and situation. Cranial nerves 2 through 12 are grossly intact. ASSESSMENT AND PLAN: 1. Acute cholecystitis. For this the patient will be given Zosyn 3.375 g IV every 6 hours. We have placed a consult with Dr. Mercado with Surgery. The patient did request him and we will await his evaluation and further recommendations. The patient did also want me to note that if possible she would like to request Dr. Gaitan as her anesthesiologist for surgery. She will remain n.p.o. at this time. We have placed orders for nausea medicine with Zofran and for pain control with morphine. 2. Possible right lower lobe pneumonia. We will continue with Zosyn as mentioned above for coverage for this as well. Blood cultures have been ordered. Sputum culture has been ordered as well. We will do incentive spirometry and we will order DuoNeb treatments as needed. We will continue with oxygen therapy and we will continue to follow. 3. Possible new onset congestive heart failure. The patient denies a previous history of this though she does have what appears to be some mild pulmonary edema as well as bilateral lower extremity pitting edema. ProBNP was 2,201 though she did not have any jugular venous distention present upon examination. We did give the patient a one time dose of Lasix 40 mg IV in the E.R. and we will continue with 20 mg of Lasix IV every 12 hours. We have placed an order for an echocardiogram and a cardiology consult as well and we will continue to follow. Troponin at this time was negative at less than 0.01. 4. Diabetes mellitus type 2. The patient normally takes metformin for this though she did receive a CT with contrast. We will place her on a low dose Lispro sliding scale insulin and continue to follow. 5. Coronary artery disease. The patient does have a history of cardiac stents though given that she is a surgical patient we will hold her aspirin at this time and then continue this after she has been evaluated by Surgery. 6. Hypertension. We will continue the patient's home medications for this and continue to follow. 7. Hyperlipidemia. We will continue the patient's Lipitor. 8. Thyroid disease, status-post thyroidectomy. We will continue the patient's Synthroid. 9. History of iron deficiency anemia. The patient reports that she takes ferrous gluconate as well as she was supposed to have an appointment with oncology for possible IV iron infusions though she missed the appointment due to not feeling well. We have ordered an anemia profile and we will await those results and continue to follow. The patient will be placed on the medical floor on telemetry. She will have vital signs every 6 hours. We will do strict intake and output. DVT prophylaxis will be provided with sequential compression devices at this time given that she is a surgical patient. GI prophylaxis will be provided with Protonix 40 mg IV every 24 hours. Further orders and recommendations pending hospital course, diagnostic studies, and physician evaluation. Dictated by SHERMAN Soriano for Grace Abraham MD
[2016-09-28 09:25] LABS: FERRITIN 126 ng/mL (13-150)
[2016-09-28 09:32] LABS: BASO% 0.4 % (0.0-0.8); EOS# 0.02 X1000 (0.0-0.7); EOS% 0.3 % (0.0-10.0); HEMATOCRIT 33.1 % (37.0-47.0); HEMOGLOBIN 9.8 g/dL (12.0-16.0); IMM GRAN# 0.13 X1000 (0.0-0.04); IMM GRAN% 1.6 % (0.0-0.5); LYMPH% 18.9 % (20.5-51.1); MANUAL DIFF NEEDED? YES; MCH 21.9 PG (27-31); MCHC 29.6 g/dL (33-37); MONO# 0.57 X1000 (0.11-0.59); MONO% 7.2 % (1.7-9.3); MPV 10.9 FL (7.4-10.4); NEUT% 71.6 % (42.2-75.2); PLT 172 X1000 (130-400); RBC 4.47 XMIL (4.2-5.4)
[2016-09-28 09:34] LABS: LYMPHS 24 % (21-51); MONO 8 % (1-9)
[2016-09-28 09:36] LABS: HYPOCHROM 2+
[2016-09-28 09:39] LABS: LARGE PLATELETS 1+
--- NOTE | 2016-09-28 09:47 | Diag Imaging Result Document ---
PROCEDURE NAME: CHEST-2 VIEWS - 09/27/2016 CHEST X-RAY 2 VIEWS, 09/27/2016: COMPARISON: 09/21/2016. FINDINGS: Stable left-sided dual-chamber pacemaker. Stable cardiomegaly. Pulmonary vascularity is grossly normal. There is slight worsening infiltrate at the right mid lung and base. Stable scarring in the costophrenic angles. IMPRESSION: Slight worsening infiltrate in the right lung. Correlate clinically for possible pneumonia.
[2016-09-28] MEDS: COREG PO SCH ×2 (10:20→21:17)
[2016-09-28] MEDS: FERGON PO SCH (10:20)
[2016-09-28] MEDS: SYNTHROID PO SCH (10:20)
[2016-09-28] MEDS: PROTONIX IV SCH (10:31)
[2016-09-28] MEDS: ZOSYN 3.375 GM/NS 50 ML IV SCH ×3 (10:32→21:20)
[2016-09-28] MEDS ORDERED: MAGNESIUM SULFATE 4 GM/S.W.I. 100 ML IV ONE (11:25)
[2016-09-28] MEDS ORDERED: ISORDIL PO SCH (11:30)
--- NOTE | 2016-09-28 11:39 | Diag Imaging Result Document ---
PROCEDURE NAME: CT ABD/PELVIS W/ IV CONT ONLY - 09/27/2016 CT ABDOMEN AND PELVIS WITH IV CONTRAST: FINDINGS: There is interstitial thickening at both lung bases suggesting fibrosis as well as mild bronchiectasis, at least at the right lung base. There may also be a component of mild interstitial edema. There is an indeterminate nodular density in the right middle lobe that is partially imaged measuring up to 1 cm. This can be seen as far back as 2011 on a previous chest CT and it actually appears smaller than in 2012. There is cardiomegaly. There are multiple small calcified stones in the gallbladder lumen and there is gallbladder wall thickening and pericholecystic fluid suggestive of acute cholecystitis. Please correlate clinically. There is a tiny low-dense focus involving the right hepatic lobe on image 44 of series 2 that probably represents a tiny cyst given its density. The left kidney is atrophic. There is a small cystic-appearing focus at the lower and upper poles of the left kidney. There is severe aortoiliac atherosclerotic disease with a subaneurysmal ectatic segment of the distal aorta measuring up to 2.7 cm axially. There is a complex cystic mass associated with the left ovary measuring up to 6.3 x 4.8 cm axially. The remainder of the solid viscera of the abdomen and pelvis and the remainder of the GI tract is essentially unremarkable. IMPRESSION: 1. Cholelithiasis with gallbladder wall thickening and pericholecystic fluid suggesting acute cholecystitis. Please correlate clinically. 2. Complex cystic mass measuring up to 6.3 cm arising from the left ovary. Neoplasm cannot be excluded. Correlation with pelvic ultrasound is recommended. 3. Bibasilar interstitial fibrosis, perhaps with a component of mild interstitial edema. 4. Right middle lobe noncalcified nodule that can be seen in 2012 and appears to be smaller. 5. Other incidental/nonacute findings detailed above.
[2016-09-28] MEDS: ISORDIL PO SCH ×3 (12:01→16:40)
[2016-09-28] MEDS: NORVASC PO SCH ×2 (12:01→21:17)
[2016-09-28] MEDS: APRESOLINE PO SCH ×3 (12:01→16:40)
[2016-09-28] MEDS: TESSALON PO PRN ×2 (15:25→21:46)
--- NOTE | 2016-09-28 15:55 | CONSULTATION ---
DATE OF CONSULTATION: 09/28/2016 REQUESTING PHYSICIAN: Hospitalist Service PRIMARY CARE PHYSICIAN: Dr. Keith Varghese INDICATION: Congestive heart failure. HISTORY OF PRESENT ILLNESS: Ms. Bell is an 86-year-old female. She presented to the emergency room department on the day of admission, which is 09/27/2016, at about 10:00 p.m. with complaints of increasing dyspnea along with progressive swelling of the lower extremities and a sensation of discomfort around the abdomen. The patient said that about a week prior to admission, she had been to the emergency room on 09/21/2016. At that time, she presented with cough and fever, and she was suspected to have some sort of upper respiratory infection. Of note, she was markedly hypokalemic at that time, and she also had elevation of bilirubin as well as AST and ALT. At that time, they put her on some antibiotics, and she went to see Dr. Varghese at the office as an outpatient a couple of days prior to this admission. She has not been feeling well, and because her symptoms did not seem to get any better, she presented for evaluation. In the ER, they went ahead and did a CT scan of the abdomen and pelvis which shows cholelithiasis with gallbladder wall thickening and pericholecystic fluid suggesting acute cholecystitis, a complex cystic mass arising from the left ovary, bibasilar interstitial fibrosis and mild interstitial edema. There is also a right middle lobe noncalcified nodule. Her ProBNP level was noted to be 2201. Her chest x-ray done on 09/27/2016 showed a slight worsening infiltrate in the right lung. A C-reactive protein has been checked, and it is elevated moderately at 47.68. Sedimentation rate is normal at 17. The patient says that she is not having any more pain in the abdomen. She is still somewhat short of breath and wheezing some when I examine her. She denies having any chest pain as such. She is very hard of hearing. PAST MEDICAL HISTORY: Positive for coronary artery disease. She has had previous stents to LAD and diagonal. Last heart catheterization revealed extensive calcification of the coronary vessels, especially the LAD, the right coronary artery and the circumflex. The patient has history of paroxysmal atrial flutter, sick sinus syndrome. She has had this dyslipidemia, hypertension, diabetes mellitus type 2, hypothyroidism. PAST SURGICAL HISTORY: She had a [employer] pacemaker implanted in 2013, and she had the pacemaker analyzed today, and it is looking normal. She has had appendectomy before. She has had left hip replacement. She has had right knee replacement. She has had thyroid surgery, cataract extraction. SOCIAL HISTORY: She is for 58 years to her . They have 2 grownup children who are with her in the room. She lives at home. She is not a smoker, not a drinker. FAMILY HISTORY: Brother had coronary artery disease. ALLERGIES: She is allergic to the following medications: Codeine, hydromorphone, ketamine, nickel and oxycodone. HOME MEDICATIONS: At this time included Ambien 5 mg at bedtime, trazodone 50 mg at bedtime, potassium chloride 20 mEq daily, metformin 750 twice a day, Synthroid 150 mcg daily, isosorbide mononitrate 30 mg daily, furosemide 40 mg twice a day, ferrous sulfate 240 daily, carvedilol 12.5 twice a day, aspirin 325 daily, ascorbic acid 1000 daily, Eliquis 5 twice a day, amiodarone 400 at bedtime, atorvastatin 20 mg at bedtime. REVIEW OF SYSTEMS: Beyond what I have reported in HPI and past history is really noncontributory. The main issue lately has been the obvious weight gain. She says that she had probably gained about 20 to 25 pounds over a period of several weeks. She has not had any recent angina pectoris. No recent syncope. No other positives. PHYSICAL EXAMINATION: Today, blood pressure is 169/102, pulse 80, respirations 18, temperature 98 degrees. She is awake, alert and oriented, no distress. HEENT: Prominent jugular veins. She is very hard of hearing. Chest shows diminished breath sounds diffusely at bases with rhonchi and end expiratory wheezes. Heart sounds regular and rhythmic. No definite gallop or murmur. Abdomen is obese, nontender. Extremities showed 2+ edema bilaterally. The legs are somewhat warm with decreased pulses. Neurologic: She follows commands and moves all 4 extremities. DIAGNOSTIC DATA: Blood work today showed her white count is 7950, hemoglobin 9.8, hematocrit 33.1, RDW is 22.1, MCV is 74. Her lymphocytes are 24, segmented neutrophils 68, monocytes 8. Her PT/INR is normal. PTT is normal. Sodium is 137, potassium 3.9, BUN is 10, creatinine 0.8, chloride 91, carbon dioxide 31, magnesium was 1.3. TIBC is 25, iron 31, saturation 11%. IMPRESSION: 1. The patient presented with abdominal pain in association with increasing dyspnea, swelling of the legs. Clinically this patient has congestive heart failure, probably due to diastolic dysfunction. According to our records, her ejection fraction has been well preserved. 2. She has sick sinus syndrome, status post implantation of pacemaker with history of paroxysmal atrial flutter. She is on moth exterminator therapy with amiodarone. 3. History of coronary artery disease, previous stents to the LAD and diagonal. She has experienced progression of disease over the course of the years. 4. She has hypertension. 5. She has low magnesium. 6. She may have a component of pneumonia. RECOMMENDATIONS: At this point in time, I would suggest to treat her several comorbidities first including optimization of her congestive heart failure before subjecting her to the risk of general anesthesia. We will discuss with Dr. Mercado and Dr. Varghese our plan of action for her, and further advice will be forthcoming. For the time being, we are going to review an echocardiogram on her, and further intervention will depend on the findings. Please notice that we have switched her from Imdur to isosorbide dinitrate and added hydralazine to optimize her blood pressure, and we would probably suggest a regimen of diuretics around the clock to try to get her into a euvolemic state. Thank you again for the opportunity to participate in her evaluation. Best regards.
--- NOTE | 2016-09-28 19:06 | CONSULTATION ---
DATE OF CONSULTATION: 09/28/2016 HISTORY OF PRESENT ILLNESS: This is an 86-year-old female with multiple medical issues including coronary disease, pulmonary dysfunction, who presents with a several week history of right upper quadrant abdominal pain. She felt like she has had a chronic cough of late and it is felt like this was secondary to that, however, she ultimately got to the point where she presented to the emergency department where a CT scan was obtained that showed changes consistent with cholecystitis. She denies any jaundice. No fevers. No weight loss. She is really not having any significant problem. She has had some diarrhea as well. PAST MEDICAL HISTORY: 1. Coronary disease. She has got stents and multifocal disease. 2. History of [place], history of atrial fibrillation. 3. History of sick sinus syndrome requiring pacemaker, hypertension, hyperlipidemia, diabetes, thyroid disease, gastroesophageal reflux disease. PAST SURGICAL HISTORY: 1. She has had a thyroidectomy, pacemaker and appendectomy. She had coronary stents x6. 2. Left ankle, right knee, left hip. SOCIAL HISTORY: Lives with her . She has family here with her. No tobacco, alcohol or drugs. FAMILY HISTORY: Hypertension, coronary disease. REVIEW OF SYSTEMS: Ten point negative other than what is mentioned in her HPI. MEDICATIONS: Include Plavix and Eliquis. PHYSICAL EXAMINATION: Vital Signs: Temperature is 97.8 degrees. There are no fevers recorded in the emergency department. Pulse 80, blood pressure 169/102, oxygen saturation is high 90s on 2 L, with desats to high 80s low 90s when oxygen is off. General: She is alert, in no acute distress. HEENT: No scleral icterus. Cardiovascular: Normal rate. Regular rhythm. Pulmonary: No increased work of breathing. Abdomen: Soft, nontender, nondistended. Skin: Warm, dry. She does have 2+ lower extremity edema. LABS: Reviewed. White count normal at 7, hematocrit 33, platelets 172,000, creatinine normal at 0.8. Bilirubin is normal at 0.98. AST mildly elevated at 84. ALT mildly elevated at 109. Alkaline phosphatase 89. Troponins were normal. BNP is elevated at 2200. Lipase normal at 53. Urinalysis with trace leukocytes. CT scan shows cystic left adnexal mass, gallstones in the gallbladder were stranding consistent with cholecystitis, cholelithiasis. No other acute intra-abdominal pathology. ASSESSMENT AND PLAN: This is an 86-year-old female with likely acute on chronic cholecystitis based off her CT imaging. She has got multiple medical issues including pulmonary and cardiac dysfunction, is debilitated and requires a walker to get around. For the most part she sits in a chair. She is anticoagulated with Eliquis and Plavix but she has not taken this in 24 hours. LFTs are okay. Mild transaminitis but her examination, fever and white count are all relatively normal. We had a long discussion with patient and her primary physician. We will plan to continue antibiotics for the next 24 to 48 hours, however, tentatively proposed tomorrow. She was profoundly hypertensive when she was picked up and she does have room for some medical optimization preoperatively and I think this is safe to do. The plan is to also engage Dr. Rice regarding her left adnexal mass for the possibility of a combined procedure at the time of her cholecystectomy. She has requested Dr. Mercado and I have talked to Dr. Mercado about this but in the meantime we will initiate her plan of care, but the patient may ultimately request Dr. Mercado to perform her surgery. Continue to follow along. Would recommend broad-spectrum antibiotics. Holding her coagulants as indicated. I think plan is to engage Cardiology as well in anticipation of surgery.
[2016-09-28] MEDS ORDERED: LASIX IV SCH (21:00)
[2016-09-28] MEDS ORDERED: CORDARONE PO SCH (21:00)
[2016-09-28] MEDS: LASIX IV SCH (21:17)
[2016-09-28] MEDS: DESYREL PO SCH (21:17)
[2016-09-28] MEDS: LIPITOR PO SCH (21:17)
[2016-09-28] MEDS: TYLENOL PO PRN (21:20)
[2016-09-29] MEDS: ZOSYN 3.375 GM/NS 50 ML IV SCH ×4 (04:34→22:46)
--- NOTE | 2016-09-29 05:05 | ECHO REPORT ---
ORDER DATE: 09/28/2016 MEASUREMENTS: 1. Left ventricular end-diastolic diameter 4.7, systolic 3.4. 2. Posterior wall thickness 1.6. 3. Septal thickness 1.6. 4. Aortic root 3.8. 5. Left atrium 3.2. SUMMARY: 1. Adequate quality in acoustic windows. 2. Very mild aortic valve sclerosis demonstrated without aortic stenosis. Mild mitral anular calcifications demonstrated with trace mitral regurgitation. Tricuspid and pulmonic valves are without evidence of structural abnormality with mild (1+) tricuspid regurgitation which is eccentrically directed towards the interatrial septum. Estimated systolic PA pressure by Dopplers is approximately 45 mmHg. Aortic root is normal size. 3. Normal left ventricular chamber size with moderate concentric left hypertrophy is demonstrated. Estimated left ejection fraction approximately 55% to 60%. No regional wall motion abnormalities evident. Doppler of mitral inflow demonstrates a pseudonormalization pattern consistent with grade 2 left ventricular diastolic dysfunction. Left atrium, right atrium and right ventricle with normal size with grossly preserved right ventricular systolic performance. Pacemaker lead is evident in the right heart. 4. No pericardial effusion. 5. The appearance of the inferior vena cava suggest normal central venous pressure. CONCLUSIONS: 1. Mild tricuspid regurgitation with [id number] pulmonary hypertension suggested by Doppler 2. Estimated left ventricular ejection fraction 55% to 60%. 3. Left ventricular diastolic dysfunction with pseudonormalization pattern. 4. Pacemaker lead in right heart.
--- NOTE | 2016-09-29 05:20 | CONSULTATION ---
DATE OF CONSULTATION: 09/28/2016 HISTORY: The patient is an 86-year-old female who is followed by Dr. Keith Varghese, who was admitted today for some issues with dyspnea. During the emergency room evaluation, a CT scan was performed, showing a complex adnexal mass measuring approximately 6 cm on the left-hand side. At that time, she was also found to have some cholelithiasis. It was thought to be that she was having active cholelithiasis at this time so originally she was going to be scheduled for a laparoscopic cholecystectomy tomorrow. However, in her evaluation preoperatively, she has been found to be in a degree of congestive heart failure and therefore this is being postponed. I spoke with the patient and her family this evening, explaining the concerns regarding the congestive heart failure and the need for surgical intervention. 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 Dr. Varghese has already ordered a CA-125 and that is pending at this time. I have discussed with them that we could not assume that this was a benign process. However, we did not want to perform any type of procedures that could affect her health, trying to determine if this was a malignant process and they agree with this plan of action. PAST MEDICAL HISTORY: Positive for coronary artery disease with a history of stents to the LAD as well as diagonal. Medical history is positive for hypertension and atrial fibrillation. PAST SURGICAL HISTORY: Positive for a pacemaker implantation in 2013, an appendectomy, left hip replacement, right knee replacement, thyroid surgery, and some outpatient procedures. SOCIAL HISTORY: Noncontributory. FAMILY HISTORY: Noncontributory. PHYSICAL EXAMINATION: General: Slightly obtunded female in no acute distress. Her family is with her at this time. Vital Signs: On the chart are noted to be within normal limits. ASSESSMENT AND PLAN: Patient with complex adnexal mass. However, at this point, due to her congestive heart failure, diagnosis will be delayed. I do agree with the CA-125 that has been ordered by Dr. Varghese and I will speak with Dr. Morgan regarding his plans for surgical intervention. Hopefully, we will be able to avoid a lot of this. However, I do agree that if she needs to have a general anesthetic, it would be kendall to perform some type of limited procedure to obtain a tissue diagnosis or certainly evaluate laparoscopically the adnexa.
[2016-09-29] MEDS: HUMALOG SUBQ SCH ×4 (06:35→22:48)
[2016-09-29 07:41] LABS: BASO% 0.2 % (0.0-0.8); EOS# 0.05 X1000 (0.0-0.7); HEMATOCRIT 29.8 % (37.0-47.0); HEMOGLOBIN 8.6 g/dL (12.0-16.0); IMM GRAN# 0.12 X1000 (0.0-0.04); IMM GRAN% 2.5 % (0.0-0.5); LYMPH# 0.92 X1000 (1.2-3.4); LYMPH% 19.3 % (20.5-51.1); MANUAL DIFF NEEDED? YES; MCH 21.6 PG (27-31); MCHC 28.9 g/dL (33-37); MCV 74.9 FL (81-99); MONO# 0.52 X1000 (0.11-0.59); MONO% 10.9 % (1.7-9.3); MPV 10.6 FL (7.4-10.4); NEUT% 66.1 % (42.2-75.2); PLT 153 X1000 (130-400); RBC 3.98 XMIL (4.2-5.4)
[2016-09-29 07:48] LABS: CALCIUM 8.7 mg/dL (8.8-10.2); POTASSIUM 3.5 mmol/L (3.5-5.1)
[2016-09-29] MEDS: SODIUM CHLORIDE 0.9% INJ SCH (08:00)
[2016-09-29] MEDS: CORDARONE PO SCH (08:00)
[2016-09-29] MEDS: LASIX IV SCH ×2 (08:00→20:26)
[2016-09-29] MEDS: APRESOLINE PO SCH ×3 (08:00→17:03)
[2016-09-29] MEDS: PROTONIX IV SCH (08:00)
[2016-09-29] MEDS: FERGON PO SCH (08:01)
[2016-09-29] MEDS: COREG PO SCH ×2 (08:01→20:26)
[2016-09-29] MEDS: NORVASC PO SCH ×2 (08:01→20:26)
[2016-09-29] MEDS: SYNTHROID PO SCH (08:01)
[2016-09-29] MEDS: ISORDIL PO SCH ×3 (08:01→17:03)
[2016-09-29] MEDS ORDERED: MILK OF MAGNESIA PO ONE (08:25)
[2016-09-29 08:34] LABS: BANDS 4 % (0-1); HYPOCHROM 2+; LYMPHS 12 % (21-51); MONO 10 % (1-9)
[2016-09-29 08:36] LABS: LARGE PLATELETS 1+
[2016-09-29] MEDS: MAG-OX PO SCH ×2 (09:38→20:26)
[2016-09-29] MEDS: ZOFRAN IV PRN (12:38)
--- NOTE | 2016-09-29 13:36 | PROGRESS NOTE ---
DATE: 09/29/2016 SUBJECTIVE: Patient is now sitting in a chair and feeling much better. OBJECTIVE: Afebrile. Vital signs are stable. A CA-125 is still pending. ASSESSMENT AND PLAN: I am uncertain if the plan from the Internal Medicine doctor is to discharge her; however, I have talked with the family at length and suggest that we do not proceed with any type of surgical intervention on the ovary if we can avoid that. I had told them I would like to follow up with the CA-125, that is pending at this time. They agree with this plan of management. I will try to discuss this with Dr. Varghese.
[2016-09-29] MEDS ORDERED: POTASSIUM CHLORIDE 20% LIQUID PO ONE (16:59)
[2016-09-29] MEDS ORDERED: VENOFER IV SCH (17:15)
--- NOTE | 2016-09-29 18:07 | PROGRESS NOTE ---
DATE: 09/29/2016 CHIEF COMPLAINT: Shortness of breath, abdominal discomfort. SUBJECTIVE: Ms. Bell is feeling better today. She is breathing easier. Her weight has not changed, however, she has experienced good diuresis. She denies having any chest discomfort. OBJECTIVE: Vital signs: Her blood pressure today is 118/56, temperature 97.9, pulse 75, respirations 18. General: She is awake, alert, oriented, in no distress. HEENT: Unremarkable. Neck: Neck veins are not distended. Chest: Fairly clear to auscultation and percussion. Cardiac: Heart sounds are regular and rhythmic. No gallop or murmur. Abdomen: Nontender, soft. No masses. No hepatomegaly. Extremities: Show 1+ edema. Pulses are fairly good. Neurologic: She moves four extremities. Follows commands. LABORATORY DATA: Sodium 136, potassium 3.5, BUN 9, creatinine 0.9. White count 4770, hemoglobin 8.6, hematocrit 29.8. IMPRESSION: 1. Patient who presented with significant shortness of breath as well as pain in the right upper quadrant. Her presentation is suspicious for congestive heart failure, probably some liver congestion. 2. Sick sinus syndrome. 3. Cholecystitis, acute on chronic. 4. Hypertension. 5. Low magnesium. 6. Rule out pneumonia. RECOMMENDATIONS: At this point in time, we will continue diuretics. We will replace potassium. We will check electrolytes in the morning and EKG. Her hemoglobin is dropping. I wonder if we should consider replacing iron at this time. Certainly the iron deficiency is a likely explanation for this microcytic anemia. In fact, her iron saturation is 11%. Probably we ought to give her some Venofer. We will follow her along. She may be ready to go for surgery probably in 48 hours. Will follow her and pet caregiver further advice.
[2016-09-29] MEDS: VENOFER 200 MG in NS 150 ML IV SCH (18:47)
[2016-09-29] MEDS: TYLENOL PO PRN (20:25)
[2016-09-29] MEDS: TESSALON PO PRN (20:25)
[2016-09-29] MEDS: LIPITOR PO SCH (20:26)
[2016-09-29] MEDS: DESYREL PO SCH (20:26)
[2016-09-29] MEDS: AMBIEN PO PRN (20:28)
[2016-09-30] MEDS: ZOSYN 3.375 GM/NS 50 ML IV SCH ×3 (04:57→18:11)
[2016-09-30] MEDS: TESSALON PO PRN (05:58)
[2016-09-30] MEDS: SODIUM CHLORIDE 0.9% INJ SCH (06:09)
[2016-09-30] MEDS: SYNTHROID PO SCH (06:09)
[2016-09-30] MEDS: PROTONIX IV SCH (06:09)
[2016-09-30] MEDS: HUMALOG SUBQ SCH ×3 (06:43→22:23)
--- NOTE | 2016-09-30 07:19 | EKG Report ---
Test Performed on : 09/30/2016 06:46:24 AM Test Reason : ASHD Blood Pressure : / mmHG Vent. Rate : 067 BPM Atrial Rate : 326 BPM P-R Int : 266 ms QRS Dur : 096 ms QT Int : 462 ms P-R-T Axes : 000 012 047 degrees QTc Int : 488 ms Atrial-paced rhythm with prolonged AV conduction Cannot rule out Anterior infarct , age undetermined Abnormal ECG When compared with ECG of 28-SEP-2016 04:25, (Unconfirmed) Electronic atrial pacemaker has replaced Sinus rhythm. Minimal criteria for Anterior infarct are now present Confirmed by Nain WHALEY, Darren Lara ([id number]) on 09/30/2016 3:23:50 PM
--- NOTE | 2016-09-30 07:49 | Diag Imaging Result Document ---
PROCEDURE NAME: CHEST-2 VIEWS - 09/30/2016 CHEST X-RAY 2 VIEWS, 09/30/2016: COMPARISON: 09/27/2016. FINDINGS: Stable pacemaker and mild cardiomegaly. There is improvement in the platelike atelectasis in the right lung base. Stable ill-defined infiltrates or fibrosis in the lung bases. Stable COPD. IMPRESSION: Improvement from prior.
[2016-09-30 08:01] LABS: CALCIUM 8.5 mg/dL (8.8-10.2); MAGNESIUM 1.7 mg/dL (1.5-2.7); POTASSIUM 3.7 mmol/L (3.5-5.1)
[2016-09-30] MEDS: VENOFER 200 MG in NS 150 ML IV SCH (10:01)
[2016-09-30] MEDS: ISORDIL PO SCH ×3 (10:02→22:23)
[2016-09-30] MEDS: FERGON PO SCH (10:02)
[2016-09-30] MEDS: NORVASC PO SCH ×2 (10:02→20:37)
[2016-09-30] MEDS: CORDARONE PO SCH (10:02)
[2016-09-30] MEDS: COREG PO SCH ×2 (10:02→20:37)
[2016-09-30] MEDS: APRESOLINE PO SCH ×3 (10:02→22:23)
[2016-09-30] MEDS: LASIX IV SCH ×2 (10:02→20:36)
[2016-09-30] MEDS: MAG-OX PO SCH ×2 (10:02→20:36)
[2016-09-30] MEDS ORDERED: MAGNESIUM SULFATE 2 GM/S.W.I. 50 ML IV ONE (18:07)
[2016-09-30] MEDS ORDERED: POTASSIUM CHLORIDE 20% LIQUID PO ONE (18:07)
[2016-09-30] MEDS: DESYREL PO SCH (20:36)
[2016-09-30] MEDS: LIPITOR PO SCH (20:37)
[2016-09-30] MEDS: AMBIEN PO PRN (22:22)
[2016-10-01] MEDS: ZOSYN 3.375 GM/NS 50 ML IV SCH ×4 (00:11→17:44)
[2016-10-01] MEDS: PROTONIX IV SCH (05:29)
[2016-10-01] MEDS: HUMALOG SUBQ SCH ×4 (06:19→21:04)
[2016-10-01] MEDS: SYNTHROID PO SCH (06:20)
[2016-10-01 07:45] LABS: MAGNESIUM 2.2 mg/dL (1.5-2.7)
[2016-10-01] MEDS: LASIX IV SCH (08:26)
[2016-10-01] MEDS: VENOFER 200 MG in NS 150 ML IV SCH (08:26)
[2016-10-01] MEDS ORDERED: SODIUM CHLORIDE 0.9% ONE (11:41)
[2016-10-01] MEDS ORDERED: LR 1,000 ML ONE (11:41)
[2016-10-01] MEDS ORDERED: MARCAINE 0.25% PF/EPI 1:200,000 ONE (11:41)
[2016-10-01] MEDS: APRESOLINE PO SCH ×2 (12:59→17:44)
[2016-10-01] MEDS: NORVASC PO SCH ×3 (13:00→21:04)
[2016-10-01] MEDS: MAG-OX PO SCH ×2 (13:00→21:04)
[2016-10-01] MEDS: ISORDIL PO SCH ×2 (13:01→17:44)
[2016-10-01] MEDS: CORDARONE PO SCH (13:02)
[2016-10-01] MEDS: COREG PO SCH ×2 (13:02→21:03)
[2016-10-01] MEDS: FERGON PO SCH (13:02)
[2016-10-01] MEDS ORDERED: MORPHINE IV PRN (14:29)
[2016-10-01] MEDS ORDERED: ULTRACET 37.5MG/325MG PO PRN (14:29)
[2016-10-01] MEDS ORDERED: FENTANYL ONE (14:45)
[2016-10-01] MEDS ORDERED: MORPHINE ONE (14:45)
[2016-10-01] MEDS ORDERED: DIPRIVAN 1% ONE (14:45)
--- NOTE | 2016-10-01 15:13 | OPERATIVE NOTE ---
PROCEDURE DATE: 10/01/2016 PROCEDURE PERFORMED: Laparoscopic cholecystectomy with attempted cholangiogram. SURGEON: Dr. Remington Mercado. SOLUTION DIRECTOR: PREOPERATIVE DIAGNOSES: 1. Acute and chronic cholecystitis. 2. Congestive heart failure. POSTOPERATIVE DIAGNOSES: 1. Acute and chronic cholecystitis. 2. Congestive heart failure. FINDINGS: We could not get a good cholangiogram because the cystic duct was obstructed so we aborted further attempts. DESCRIPTION OF PROCEDURE: Satisfactory general endotracheal anesthesia was received. The abdomen was prepped and draped in a sterile fashion. We anesthetized the skin below the umbilicus, made a vertical incision, carried our incision down to the fascia. We scored the fascia, introduced 11 trocar into the abdominal cavity. We insufflated through this trocar. Under direct visualization introduced a 5 trocar in the midclavicular line, a 5 trocar near the anterior axillary line, 11 mm trocar in the midepigastrium. We placed the patient in reverse Trendelenburg and turned her to the left. We grasped the fundus of the gallbladder, reflected cephalad and then began dissection of the triangle of Calot. Identified the cystic duct, clipped it near insertion of the gallbladder. We incised the cystic duct and placed a catheter and had to clip it in place but we could not get an adequate cholangiogram after 2 tries because the cystic duct was obstructed. We then removed the cholangiogram catheter and clipped the cystic duct on the opposite side of cystic ductotomy x2 and transected it. The cystic artery was clipped proximally and distally and divided in 2 places We then used the cautery spatula to dissect the gallbladder away from the liver. After complete separation of the gallbladder from the liver we changed the videolaparoscope to the mid epigastric trocar. We introduced an EndoCatch, placed the gallbladder within the bag and delivered it out of the abdominal cavity. We looked back. Hemostasis was satisfactory. We placed the patient in profound Trendelenburg. We looked at the left ovary and it appeared to not be significantly abnormal but simply cystic. We then flattened the patient once again, hemostasis remained acceptable. We then desufflated and removed our trocars. We used a 2-0 Polysorb in the fascia at the epigastrium and a 2-0 Polysorb and the fascia at the umbilicus. We then closed the skin at each incision with 4-0 Polysorb subcuticular stitches. Sterile OpSites were applied. She tolerated it well, was sent to the recovery room in satisfactory condition.
[2016-10-01] MEDS ORDERED: XYLOCAINE-MPF 2% ONE (15:47)
[2016-10-01] MEDS ORDERED: QUELICIN (DOSE) ONE (15:47)
[2016-10-01] MEDS ORDERED: ROBINUL ONE (15:47)
[2016-10-01] MEDS ORDERED: NORCURON ONE (15:47)
[2016-10-01] MEDS ORDERED: DECADRON ONE (15:47)
[2016-10-01] MEDS ORDERED: NEOSTIGMINE ONE (15:47)
[2016-10-01] MEDS ORDERED: ZOFRAN ONE (15:47)
[2016-10-01] MEDS: OFIRMEV 1000 MG/ISOTONIC SOLN 100 ML IV SCH (19:31)
[2016-10-01] MEDS: LIPITOR PO SCH (21:03)
[2016-10-01] MEDS: DESYREL PO SCH (21:03)
[2016-10-01] MEDS: GLUCOPHAGE XR PO SCH (21:04)
[2016-10-02] MEDS: OFIRMEV 1000 MG/ISOTONIC SOLN 100 ML IV SCH ×2 (00:13→06:06)
[2016-10-02] MEDS: ZOSYN 3.375 GM/NS 50 ML IV SCH ×2 (00:13→06:07)
[2016-10-02 04:00] LABS: URINE CULTURE NEEDED? NO; URINE MICRO REVIEW NEEDED? NO; URINE SOURCE CATH
[2016-10-02 04:23] LABS: BILIRUBIN URINE NEGATIVE (NEGATIVE); BLOOD URINE NEGATIVE (NEGATIVE); COLOR YELLOW; GLUCOSE URINE NEGATIVE (NEGATIVE); LEUKOCYTES URINE NEGATIVE (NEGATIVE); NITRITE URINE NEGATIVE (NEGATIVE); PROTEIN URINE TRACE mg/dL (NEGATIVE); SP GRAVITY URINE 1.014; TURBIDITY URINE CLEAR (CLEAR); UR EPITHELIAL CELLS <10 /HPF (<10); URINE BACTERIA NEGATIVE /HPF; URINE RBC <10 /HPF (<10); URINE WBC <10 /HPF (<10); UROBILINOGEN URINE NORMAL (NORMAL)
[2016-10-02] MEDS ORDERED: XYLOCAINE 1%/EPI 1:100,000 INJ ONE (05:24)
[2016-10-02] MEDS: SYNTHROID PO SCH (06:07)
--- NOTE | 2016-10-02 06:33 | PROGRESS NOTE ---
DATE: 10/02/2016 I was informed by the nurses that the patient had a recent cholecystectomy by Dr. Mercado, had bleeding at her subxiphoid incision. I evaluated the patient. She was hemodynamically stable. She did have a blood clot noted superficially to her incision. She had been on Eliquis previously but had held it prior to surgery. Removed the dressing. There was some small bleeding noted at the skin edges. I injected 1% lidocaine with epinephrine in the area and placed a second pressure dressing on top of this. Will observe for now. Dr. Mercado will see the patient later today.
[2016-10-02] MEDS: HUMALOG SUBQ SCH ×4 (06:51→21:44)
[2016-10-02 07:11] LABS: ALBUMIN 3.2 g/dL (3.5-5.0); CALCIUM 8.7 mg/dL (8.8-10.2); DIRECT BILIRUBIN 0.5 mg/dL (0.00-0.20); POTASSIUM 3.9 mmol/L (3.5-5.1); TOTAL BILIRUBIN 1.16 mg/dL (0.20-1.00); TOTAL PROTEIN 6.1 g/dL (6.3-8.3)
[2016-10-02] MEDS: GLUCOPHAGE XR PO SCH ×2 (09:32→21:35)
[2016-10-02] MEDS: APRESOLINE PO SCH ×3 (09:32→16:31)
[2016-10-02] MEDS: CORDARONE PO SCH (09:32)
[2016-10-02] MEDS: ISORDIL PO SCH ×3 (09:32→16:33)
[2016-10-02] MEDS: VITAMIN C PO SCH (09:32)
[2016-10-02] MEDS: NORVASC PO SCH ×2 (09:33→21:34)
[2016-10-02] MEDS: MAG-OX PO SCH ×2 (09:33→21:34)
[2016-10-02] MEDS: COREG PO SCH ×2 (09:33→21:34)
[2016-10-02] MEDS: CIPRO PO SCH ×2 (09:38→21:34)
[2016-10-02] MEDS ORDERED: TYLENOL PO PRN (12:00)
[2016-10-02] MEDS ORDERED: NS 500 ML IV ONE (15:12)
[2016-10-02] MEDS: ZOFRAN IV PRN (21:25)
[2016-10-02] MEDS: DESYREL PO SCH (21:34)
[2016-10-02] MEDS: LIPITOR PO SCH (21:34)
[2016-10-02] MEDS: AMBIEN PO PRN (21:36)
[2016-10-03] MEDS: SYNTHROID PO SCH (06:26)
[2016-10-03] MEDS: HUMALOG SUBQ SCH ×3 (06:31→16:49)
[2016-10-03] MEDS: NORVASC PO SCH ×2 (09:18→20:12)
[2016-10-03] MEDS: APRESOLINE PO SCH ×3 (09:18→17:04)
[2016-10-03] MEDS: ISORDIL PO SCH ×3 (09:18→17:03)
[2016-10-03] MEDS: MAG-OX PO SCH ×2 (09:18→20:12)
[2016-10-03] MEDS: GLUCOPHAGE XR PO SCH ×2 (09:19→20:12)
[2016-10-03] MEDS: COREG PO SCH ×2 (09:19→20:11)
[2016-10-03] MEDS: CORDARONE PO SCH (09:19)
[2016-10-03] MEDS: VITAMIN C PO SCH (09:19)
[2016-10-03] MEDS: CIPRO PO SCH ×2 (09:20→20:11)
[2016-10-03 11:26] LABS: HEMATOCRIT 26.6 % (37.0-47.0); HEMOGLOBIN 7.7 g/dL (12.0-16.0); MCH 22.2 PG (27-31); MCHC 28.9 g/dL (33-37); MCV 76.7 FL (81-99); MPV 9.9 FL (7.4-10.4); RBC 3.47 XMIL (4.2-5.4)
[2016-10-03 11:33] LABS: CALCIUM 8.4 mg/dL (8.8-10.2); POTASSIUM 3.7 mmol/L (3.5-5.1)
--- NOTE | 2016-10-03 11:47 | PROGRESS NOTE ---
DATE: 10/03/2016 SUBJECTIVE: Ms Bell is status post laparoscopic cholecystectomy. Since surgery, she has had persistent urinary retention requiring in and out catheters. She was able to void approximately 400 mL. Her blood sugars from 88-132. She denies any polyuria or polydipsia. She is tolerating a bland diet without nausea, vomiting, or abdominal pain. OBJECTIVE: Vital signs: Temperature 97.5 degrees, pulse 72, respirations 16, BP 142/71. CV: Regular rate and rhythm. Lungs: Clear. Abdomen: Soft, nontender, with active bowel sounds. ASSESSMENT: 1. Acute urinary retention. She was able to void a small amount of urine this morning. I am going to have the nurses perform a bladder scan. If she is retaining significant urine, we certainly could continue the in-and-out catheterizations or place a Mccall. 2. Type 2 non insulin-dependent diabetes mellitus. Blood sugars are well controlled. We will continue a bland diet, her current medications, including metformin, pattern sugars and a Humulin R sliding scale. 3. Physical debility. She has still not been able to get out of bed very much in the past several days. Her family reports that she has fallen twice during her hospitalization. We will consult physical therapy and ask elementary school social worker to look for rehabilitation bed.
[2016-10-03] MEDS: FLOMAX PO SCH (17:04)
[2016-10-03] MEDS: LIPITOR PO SCH (20:11)
[2016-10-03] MEDS: DESYREL PO SCH (20:12)
[2016-10-03] MEDS: AMBIEN PO PRN (20:21)
[2016-10-04] MEDS: HUMALOG SUBQ SCH ×5 (04:03→22:34)
[2016-10-04] MEDS: SYNTHROID PO SCH (06:23)
[2016-10-04] MEDS: FLOMAX PO SCH (10:41)
--- NOTE | 2016-10-04 10:41 | PROGRESS NOTE ---
DATE: 10/04/2016 SUBJECTIVE: Mrs. Bell had acute urinary retention following surgery. She has been undergoing in an out catheterizations. She has been able to void independently 3 times this morning. She still feels somewhat washed out and lethargic. She denies any nausea, vomiting, reflux, sour brash, or gross melena. Blood sugars are generally well controlled. OBJECTIVE: Vital Signs: She his afebrile. Pulse 74, respirations 22, blood pressure 136/65. Cardiovascular: CV regular rate and rhythm with a 2 to 3/6 systolic ejection murmur at the right sternal margin. Lungs: Clear. Abdomen: Soft, nontender, with active bowel sounds. ASSESSMENT AND PLAN: 1. Acute urinary retention, resolved. She is voiding freely on her own and we will stop the in and out catheterizations. 2. Acute blood loss anemia. She has chronic anemia. Her hemoglobin and hematocrit have dropped from 9 and 32 to 7 and 26. She is hemodynamically stable. She is not tachycardic. Her blood pressure is normal. She denies any chest pain or shortness of breath. At this point in time I am going to hold off giving a transfusion and will recheck blood counts in the morning. 3. Hyponatremia. Her serum sodium has dropped from 132-125. I am going to reduce the Apresoline to 50 mg b.i.d.
[2016-10-04] MEDS: VITAMIN C PO SCH (10:42)
[2016-10-04] MEDS: MAG-OX PO SCH ×2 (10:42→22:33)
[2016-10-04] MEDS: ISORDIL PO SCH ×3 (10:42→18:10)
[2016-10-04] MEDS: COREG PO SCH ×2 (10:42→22:33)
[2016-10-04] MEDS: CORDARONE PO SCH (10:43)
[2016-10-04] MEDS: NORVASC PO SCH ×2 (10:43→22:33)
[2016-10-04] MEDS: GLUCOPHAGE XR PO SCH ×2 (10:51→22:33)
[2016-10-04] MEDS: CIPRO PO SCH ×2 (11:22→22:33)
[2016-10-04] MEDS ORDERED: APRESOLINE PO SCH (21:00)
[2016-10-04] MEDS: DESYREL PO SCH (22:33)
[2016-10-04] MEDS: AMBIEN PO PRN (22:33)
[2016-10-04] MEDS: LIPITOR PO SCH (22:33)
[2016-10-04] MEDS: TESSALON PO PRN (22:38)
[2016-10-05] MEDS: SYNTHROID PO SCH (06:37)
[2016-10-05] MEDS: HUMALOG SUBQ SCH (06:38)
[2016-10-05 06:53] LABS: HEMATOCRIT 27.2 % (37.0-47.0); HEMOGLOBIN 8.1 g/dL (12.0-16.0)
[2016-10-05 07:21] LABS: CALCIUM 8.8 mg/dL (8.8-10.2)
[2016-10-05 08:06] VITALS: BP 159/67
[2016-10-05] MEDS: ISORDIL PO SCH (10:03)
[2016-10-05] MEDS: NORVASC PO SCH (10:03)
[2016-10-05] MEDS: CORDARONE PO SCH (10:04)
[2016-10-05] MEDS: GLUCOPHAGE XR PO SCH (10:04)
[2016-10-05] MEDS: FLOMAX PO SCH (10:04)
[2016-10-05] MEDS: VITAMIN C PO SCH (10:04)
[2016-10-05] MEDS: COREG PO SCH (10:04)
[2016-10-05] MEDS: MAG-OX PO SCH (10:04)
--- NOTE | 2016-10-06 07:15 | DISCHARGE SUMMARY ---
ADMISSION DATE: 09/28/2016 DISCHARGE DATE: 10/05/2016 FINAL DIAGNOSIS: 1. Acute calculous cholecystitis. 2. Chronic atrial fibrillation. 3. Essential hypertension, under control. 4. Congestive heart failure, diastolic, uncontrolled. 5. Acute pulmonary edema. 6. Type 2 diabetes. 7. Iron-deficiency anemia. 8. Hypothyroidism, replaced. HISTORY OF PRESENT ILLNESS: Ms. Bell is an 86-year-old woman who presented to the emergency room with right upper quadrant pain intermittently for 4 or 5 days radiating to her right flank and right scapular area. She also noticed some nonproductive cough and increasing edema. ABDOMEN: Reveals some mild right upper quadrant tenderness with active bowel sounds. No guarding or rebound tenderness. 2+ pitting edema was noted in both ankles to the mid calf. Pulmonary: Revealed some crackles in both bases. DIAGNOSTIC: Chest x-ray showed bibasilar infiltrates with minimal, if any, cardiomegaly. CAT scan of abdomen showed edematous gallbladder with multiple small stones and some loculated fluid. HOSPITAL COURSE: She was admitted to the medical floor. Cardiology consultation was obtained. Dr. Mcdaniel was familiar with her history and felt her decompensated cardiac status would require delaying surgery. She was treated with twice daily intravenous Lasix with vigorous diuresis resulting. Her lung sounds improved markedly and her blood pressure improved modestly. He added amlodipine and changed her Imdur to isosorbide dinitrate. She was noted to have microcytic anemia, and the confirmational iron studies show low iron was given. A total of 800 mg of Venofer in four 200 mg doses. When cardiovascularly stable, she was taken to the operating room, and on 10/01/2016 underwent uneventful laparoscopic cholecystectomy. Postoperatively she had urinary retention which has since resolved and also some mild hyponatremia. At the time of discharge, she is active and ambulatory and tolerating a regular diet well and voiding well. She is discharged in improved condition and to return to my office in 1-2 weeks. It should be noted that her intraoperative cholangiogram was unsuccessful due to a cystic duct obstruction and will merit followup of her liver enzymes as an outpatient. DISCHARGE MEDICATIONS: 1. Amiodarone 200 mg daily. 2. Amlodipine 5 mg q.a.m. 3. Carvedilol 25 mg q.12 hours. 4. Furosemide 40 mg q.a.m. 5. Isordil 40 mg twice a day. 6. Tamsulosin 0.4 mg after supper. 7. Lipitor 10 mg at bedtime. 8. Eliquis 5 mg twice a day. 9. Levothyroxine 150 mcg daily. 10. Metformin ER 750 mg twice a day. 11. Potassium chloride 20 mEq daily. 12. Trazodone 50 mg at bedtime. 13. Ambien 5 mg at bedtime p.r.n. for sleep.
== END 2016-10-05 14:58 | disposition home or self-care (01) | DRG 417 ==
LOC: ED 22:17 → EDIPHOLD 09-28 07:44 → 3N 09-28 16:57
PROVIDERS: ADMIT Internal Medicine; ATTEND Internal Medicine
PROC: 0FT44ZZ Resection of Gallbladder, Percutaneous Endoscopic Approach (ICD-10-PCS; principal; 2016-10-01 13:27)
DX: K80.13 Calculus of gallbladder with acute and chronic cholecystitis with obstruction (principal); I50.33 Acute on chronic diastolic (congestive) heart failure; I48.92 Unspecified atrial flutter; J84.10 Pulmonary fibrosis, unspecified; D62 Acute posthemorrhagic anemia; E87.1 Hypo-osmolality and hyponatremia; E11.9 Type 2 diabetes mellitus without complications; K76.1 Chronic passive congestion of liver; L76.22 Postprocedural hemorrhage of skin and subcutaneous tissue following other procedure; I11.0 Hypertensive heart disease with heart failure; I48.2 Chronic atrial fibrillation; D50.9 Iron deficiency anemia, unspecified; I25.10 Atherosclerotic heart disease of native coronary artery without angina pectoris; I25.84 Coronary atherosclerosis due to calcified coronary lesion; R33.8 Other retention of urine; N99.89 Other postprocedural complications and disorders of genitourinary system; W19.XXXA Unspecified fall, initial encounter; E89.0 Postprocedural hypothyroidism; E78.5 Hyperlipidemia, unspecified; K21.9 Gastro-esophageal reflux disease without esophagitis; Z96.651 Presence of right artificial knee joint; Z96.642 Presence of left artificial hip joint; R19.09 Other intra-abdominal and pelvic swelling, mass and lump; Z95.5 Presence of coronary angioplasty implant and graft; I25.2 Old myocardial infarction; Z95.0 Presence of cardiac pacemaker; Z82.49 Family history of ischemic heart disease and other diseases of the circulatory system; Z79.899 Other long term (current) drug therapy; Z79.01 Long term (current) use of anticoagulants; Z79.82 Long term (current) use of aspirin; Z79.84 Long term (current) use of oral hypoglycemic drugs
CPT/HCPCS: 71020; 74177; 76000; 80048; 80053; 80076; 81001; 82150; 82550; 82607; 82728; 82746; 82948; 83036; 83540; 83550; 83690; 83735; 83880; 84484; 85014; 85018; 85025; 85027; 85610; 85651; 85730; 86140; 86304; 87040; 87088; 87804; 88304; 93005; 93010; 93306; 94761; 94799; 96365; 96367; 96375; C9113; J0131; J0330; J1100; J1756; J1815; J1940; J2270; J2405; J2543; J3010; J3475; J7040; J7120; Q9966; Q9967; 97116-GP; J2710; S0164

== ENCOUNTER 2018-12-18 17:35 | Inpatient (IN) ==
[2018-12-18] MEDS ORDERED: CARDIZEM IV ONE (17:49)
[2018-12-18] MEDS ORDERED: ASPIRIN PO ONE (17:59)
[2018-12-18] MEDS: DUONEB (A & A) INH ONE ×2 (18:09→18:10)
[2018-12-18 18:27] LABS: BASO# 0.03 X1000 (0.0-0.2); BASO% 0.2 % (0.0-0.8); EOS# 0.06 X1000 (0.0-0.7); EOS% 0.5 % (0.0-10.0); HEMATOCRIT 34.9 % (37.0-47.0); HEMOGLOBIN 11.5 g/dL (12.0-16.0); IMM GRAN# 0.08 X1000 (0.0-0.04); IMM GRAN% 0.6 % (0.0-0.5); LYMPH% 13.8 % (20.5-51.1); MCV 78.8 FL (81-99); MONO# 1.36 X1000 (0.11-0.59); MPV 10.6 FL (7.4-10.4); NEUT% 73.9 % (42.2-75.2); PLT 173 X1000 (130-400); RBC 4.43 XMIL (4.2-5.4); RDW 17.5 % (11.5-14.5); WBC 12.33 X1000 (4.8-10.8)
--- NOTE | 2018-12-18 18:58 | Diag Imaging Result Doc PS360 ---
CHEST-PORTABLE - 12/18/2018 INDICATION: sob COMPARISON: 09/28/2018 FINDINGS: Stable left-sided pacemaker. Stable cardiomegaly and pulmonary vascular congestion. Lung volumes are lower. There is worsening right basilar infiltrate right greater than left. This may represent pneumonia. No pneumothorax or large pleural effusion. IMPRESSION: Lower lung volumes. Bibasilar infiltrates right greater than left suspicious for pneumonia. Electronically signed by Thomas Cochran 12/18/2018 6:55 PM
[2018-12-18 19:02] LABS: ALB/GLOB RATIO 1.7; ALBUMIN 4.5 g/dL (3.5-5.0); CREATININE 1.5 mg/dL (0.5-0.9); POTASSIUM 4.1 mmol/L (3.5-5.1); TOTAL BILIRUBIN 1.41 mg/dL (0.20-1.00); TOTAL PROTEIN 7.1 g/dL (6.3-8.3)
[2018-12-18] MEDS ORDERED: ROCEPHIN 1 GM in NS 50 ML IV ONE (19:07)
[2018-12-18 19:47] LABS: URINE SOURCE CLEAN CATCH
[2018-12-18 19:51] LABS: BILIRUBIN URINE NEGATIVE (NEGATIVE); BLOOD URINE TRACE (NEGATIVE); COLOR YELLOW; GLUCOSE URINE NEGATIVE (NEGATIVE); KETONE URINE NEGATIVE (NEGATIVE); LEUKOCYTES URINE MODERATE (NEGATIVE); NITRITE URINE NEGATIVE (NEGATIVE); PH URINE 5.5; PROTEIN URINE NEGATIVE (NEGATIVE); TURBIDITY URINE CLEAR (CLEAR); UR EPITHELIAL CELLS <10 /HPF (<10); URINE BACTERIA NEGATIVE /HPF; URINE RBC <10 /HPF (<10); URINE WBC 20-40 /HPF (<10); UROBILINOGEN URINE NORMAL (NORMAL)
[2018-12-18 20:30] LABS: INR 1.8; PROTIME 22.2 Seconds (11.0-16.0)
[2018-12-18 20:31] LABS: PTT 40.3 Seconds (22.3-41.8)
[2018-12-18 20:46] LABS: HEMOGLOBIN A1C 5.5 % (4.8-6.0)
[2018-12-18] MEDS ORDERED: NS NEB INH SCH (23:07)
[2018-12-18] MEDS: XOPENEX NEB INH SCH (23:15)
[2018-12-18] MEDS: ATROVENT NEB INH SCH (23:15)
--- NOTE | 2018-12-19 01:48 | PROVIDER DOCUMENTATION ---
This chart was entered by Barry Ny Scribe, acting as scribe for Jose Chatman MD. HPI-Respiratory General - General Stated Complaint: CHEST CONGESTION Time Seen by Provider: 12/18/18 17:44 Source: patient Allergies/Adverse Reactions: Patient Allergies Allergy/AdvReac Type Severity Reaction Status Date / Time codeine [Codeine] Allergy Severe ANAPHYLAXIS Verified 01/10/18 14:51 hydromorphone HCl * AdvReac Severe HALLUCINATI Verified 01/10/18 14:51 [From Dilaudid] ONS ketamine AdvReac Severe HALLUCINATI Verified 01/10/18 14:51 ONS nickel [Nickel] AdvReac Severe "I REJECT Verified 01/10/18 14:51 IT" oxycodone HCl * AdvReac Severe HALLUCINATI Verified 01/10/18 14:51 [From Percocet] ONS Home Medications: Home Medication List Medication Instructions Recorded Confirmed Last Taken Type ATORVAstatin [Lipitor] 20 mg PO QHS 05/26/12 12/18/18 09/27/16 History Apixaban [Eliquis] 5 mg PO BID 02/16/16 12/18/18 09/27/16 History Potassium Chloride [Klor-Con] 20 meq PO DAILY 09/21/16 12/18/18 09/27/16 History Zolpidem [Ambien] 5 mg PO QHS 09/29/16 12/18/18 09/27/16 History Acetaminophen [Tylenol] 650 mg PO Q6H PRN PRN #0 tablet 10/05/16 12/18/18 Unknown Rx Amiodarone [Cordarone] 200 mg PO DAILY #0 tablet 10/05/16 12/18/18 Unknown Rx Furosemide [Lasix] 40 mg PO QAM #0 10/05/16 12/18/18 09/27/16 Rx Ascorbic Acid [Vitamin C] 100 mg PO DAILY 12/18/18 12/18/18 Unknown History Bisoprolol [Zebeta] 5 mg PO QHS 12/18/18 12/18/18 Unknown History Cyanocobalamin (Vitamin B-12) 1,000 mcg PO DAILY 12/18/18 12/18/18 Unknown History [B-12] Famotidine 20 mg PO DAILY 12/18/18 12/18/18 Unknown History Glimepiride 1 mg PO DAILY 12/18/18 12/18/18 Unknown History Isosorbide Mononitrate E.r. [Imdur] 30 mg PO DAILY 12/18/18 12/18/18 Unknown History Levothyroxine Sodium [Tirosint] 125 mcg PO DAILY 12/18/18 12/18/18 Unknown History Losartan Potassium 25 mg PO BID 12/18/18 12/18/18 Unknown History Nitroglycerin 0.4 mg SUBLINGUAL Q5M PRN PRN 12/18/18 12/18/18 Unknown History - History of Present Illness-Resp Nature of Presenting Problem: Pt is a 88 yof who presents to the ED via EMS with a CC of congestion and SOB. Pt states that she started feeling bad six days ago and went to her PCP. Pt states her PCP increased her Lasix prescription to reduce the fluid on her lungs. Pt states that her PCP told her to come back if her symptoms worsened, but she was unable to because she started feeling bad last night and he is closed on the weekend. Pt states she has a mild cough that produces sputum. Pt states that her sputum is mainly clear, but she occasionally coughs up yellow sputum. Pt states a hx of CHF, pneumonia, and heart failure. Pt states that she sleeps in a recliner because she fell and broke her back two years ago. Upon examination the pt had wheezing in her lower lung base, bilaterally. Quality of Pain: reports: indigestion Severity in ED: reports: mild Onset/Duration: reports: 6 days ago Timing: reports: still present Exposure: reports: unknown cause Cough Quality/Degree: reports: moderate, productive cough, sputum (Mainly clear, some yellow) Episode Frequency: occasional episodes Associated Symptoms: reports: cough, nasal congestion, nasal drainage, shortness of breath, sinus pain, wheezing. denies: chest pain/soreness, dizziness, fever/chills, heart racing, hurts to breathe, lightheadedness Similar Symptoms Previously?: Yes Recently seen or treated by another doctor?: Yes Review of Systems - Adult - REVIEW OF SYSTEMS - ADULT Constitutional: reports: see HPI. denies: chills, fever, fatique, night sweats Eyes: reports: no symptoms reported Ears, Nose, Mouth & Throat: reports: sinus problem (Congested) Cardiovascular: reports: no symptoms reported Respiratory: reports: see HPI, cough, excessive sputum production (Mainly clear, some yellow), shortness of breath, wheezing Gastrointestinal: reports: no symptoms reported Genitourinary: reports: no symptoms reported Musculoskeletal: reports: no symptoms reported Integumentary: reports: no symptoms reported Neurological: reports: no symptoms reported Allergic/Immunologic: reports: no symptoms reported Past History - Adult - PAST MEDICAL HISTORY-ADULT Review of Records: reports: Old Records Reviewed, Nursing Assessment Review, Medications Reviewed, Social history reviewed & non-contributory. Major Childhood Illnesses: reports: denies history Cardiovascular: reports: CAD, HTN, hyperlipidemia, pacemaker, other (internal heart monitor). 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), other (cataract removal; thyroidectomy) - PRIOR HOSPITALIZATIONS Prior Hospitalizations: reports: for similar symptoms - IMMUNIZATION STATUS Childhood Immunizations: See Nurse Assessment Flu Vaccine: See Nurse Assessment - FAMILY HISTORY Family History: reviewed, not pertinent - SOCIAL HISTORY Smoking: denies, non-smoker Substance Use: none/never, denies Alcohol Use Frequency: never Physical Exam-General - PHYSICAL EXAM-ADULT Initial Vital Signs Reviewed: Yes - CONSTITUTIONAL General Appearance: appears well, alert, mild distress - EYES Eyes: PERRL/EOMI - NECK Neck: non-tender, full range of motion. negative: limited range of motion, lymphadenopathy, meningismus - RESPIRATORY Respiratory: chest non-tender, no pleuratic chest pain, no respiratory distress, no accessory muscle use, wheezing (Mild). negative: decreased breath sounds, accessory muscle use, crackles, pain on inspiration, pleural rub, retractions - CARDIOVASCULAR Cardiovascular: normal peripheral pulses, regular rate, rhythm, no edema - GASTROINTESTINAL (ABDOMEN) Abdominal Exam: non tender, soft - MUSCULOSKELETAL Extremity: normal range of motion, non-tender - SKIN Integumentary: normal color, warm/dry - NEUROLOGIC Neurologic: grossly normal, no motor/sensory deficits - PSYCHIATRIC Psych/Mental Status: normal thought content, normal thought process Progress - PLAN OF CARE/RESULTS Progress/Plan/Lab Results: Vital Signs - 8 hr 12/18/18 17:37 12/18/18 17:43 12/18/18 18:11 Temperature 98.2 F Pulse Rate 123 H 125 H Respiratory Rate 22 20 Blood Pressure 151/99 151/99 O2 Sat by Pulse Oximetry 95 98 12/18/18 18:13 12/18/18 18:16 12/18/18 18:31 Temperature Pulse Rate 107 H 104 H Respiratory Rate Blood Pressure 138/104 158/100 137/80 O2 Sat by Pulse Oximetry 98 97 96 12/18/18 19:01 12/18/18 19:31 12/18/18 20:01 Temperature Pulse Rate 104 H 119 H 130 H Respiratory Rate Blood Pressure 116/76 118/82 111/80 O2 Sat by Pulse Oximetry 95 96 12/18/18 20:31 12/18/18 21:01 Temperature Pulse Rate 72 Respiratory Rate Blood Pressure 131/68 105/72 O2 Sat by Pulse Oximetry 94 L 95 Laboratory Results - last 24 hr 12/18/18 12/18/18 12/18/18 18:06 18:06 18:06 WBC 12.33 H RBC 4.43 Hgb 11.5 L Hct 34.9 L MCV 78.8 L MCH 26.0 L MCHC 33.0 RDW Std Deviation 17.5 H Plt Count 173 MPV 10.6 H Immature Gran % (Auto) 0.6 H Neut % (Auto) 73.9 Lymph % (Auto) 13.8 L Ramsey % (Auto) 11.0 H Eos % (Auto) 0.5 Baso % (Auto) 0.2 Immature Gran # (Auto) 0.08 H Neut # (Auto) 9.10 H Lymph # (Auto) 1.70 Ramsey # (Auto) 1.36 H Eos # (Auto) 0.06 Baso # (Auto) 0.03 PT INR PTT (Actin FS) Sodium 131 L Potassium 4.1 Chloride 91 L Carbon Dioxide 25 Anion Gap 15 BUN 23 H Creatinine 1.5 H Estimated GFR/1.73 m2 33 BUN/Creatinine Ratio 15 Glucose 89 Estimat Average Glucose Hemoglobin A1c Calculated Osmolality 266 Calcium 9.0 Total Bilirubin 1.41 H AST 16 ALT 12 Alkaline Phosphatase 90 Troponin T Hbx-T-Ocuctpnxcpi Pept 1223 H Total Protein 7.1 Albumin 4.5 Globulin 2.6 Albumin/Globulin Ratio 1.7 Plasma Lactate TSH Urine Source Urine Color Urine Turbidity Urine pH Ur Specific [place] Urine Protein Ur Glucose (Stick) Ur Ketones (Stick) Urine Blood Urine Nitrite Urine Bilirubin Urobilinogen Dipstick Urine Leukocytes Urine WBC (Auto) Urine RBC (Auto) U Epithel Cells (Auto) Urine Bacteria (Auto) 12/18/18 12/18/18 12/18/18 18:06 18:06 18:06 WBC RBC Hgb Hct MCV MCH MCHC RDW Std Deviation Plt Count MPV Immature Gran % (Auto) Neut % (Auto) Lymph % (Auto) Ramsey % (Auto) Eos % (Auto) Baso % (Auto) Immature Gran # (Auto) Neut # (Auto) Lymph # (Auto) Ramsey # (Auto) Eos # (Auto) Baso # (Auto) PT INR PTT (Actin FS) Sodium Potassium Chloride Carbon Dioxide Anion Gap BUN Creatinine Estimated GFR/1.73 m2 BUN/Creatinine Ratio Glucose Estimat Average Glucose 111 Hemoglobin A1c 5.5 Calculated Osmolality Calcium Total Bilirubin AST ALT Alkaline Phosphatase Troponin T < 0.010 Okb-[id number]-Qmhczvvuvho Pept Total Protein Albumin Globulin Albumin/Globulin Ratio Plasma Lactate TSH 2.07 Urine Source Urine Color Urine Turbidity Urine pH Ur Specific [place] Urine Protein Ur Glucose (Stick) Ur Ketones (Stick) Urine Blood Urine Nitrite Urine Bilirubin Urobilinogen Dipstick Urine Leukocytes Urine WBC (Auto) Urine RBC (Auto) U Epithel Cells (Auto) Urine Bacteria (Auto) 12/18/18 12/18/18 12/18/18 18:06 18:22 19:38 WBC RBC Hgb Hct MCV MCH MCHC RDW Std Deviation Plt Count MPV Immature Gran % (Auto) Neut % (Auto) Lymph % (Auto) Ramsey % (Auto) Eos % (Auto) Baso % (Auto) Immature Gran # (Auto) Neut # (Auto) Lymph # (Auto) Ramsey # (Auto) Eos # (Auto) Baso # (Auto) PT 22.2 H INR 1.80 PTT (Actin FS) 40.3 Sodium Potassium Chloride Carbon Dioxide Anion Gap BUN Creatinine Estimated GFR/1.73 m2 BUN/Creatinine Ratio Glucose Estimat Average Glucose Hemoglobin A1c Calculated Osmolality Calcium Total Bilirubin AST ALT Alkaline Phosphatase Troponin T Cin-T-Kjmdxzzwvrw Pept Total Protein Albumin Globulin Albumin/Globulin Ratio Plasma Lactate 1.4 TSH Urine Source CLEAN CATCH Urine Color YELLOW Urine Turbidity CLEAR Urine pH 5.5 Ur Specific [place] 1.000 Urine Protein NEGATIVE Ur Glucose (Stick) NEGATIVE Ur Ketones (Stick) NEGATIVE Urine Blood TRACE A Urine Nitrite NEGATIVE Urine Bilirubin NEGATIVE Urobilinogen Dipstick NORMAL Urine Leukocytes MODERATE A Urine WBC (Auto) 20-40 A Urine RBC (Auto) <10 U Epithel Cells (Auto) <10 Urine Bacteria (Auto) NEGATIVE Orders Category Date [facility] Routine AdmDCTranf 12/18/18 23:07 Active Cardiac Monitoring DIRECTED Care 12/18/18 18:28 Completed IV Insertion ORDERED Care 12/18/18 18:28 Completed Notify MD of + Sepsis Screen NOW Care 12/18/18 18:28 Completed Notify Physician As Ordered Care 12/18/18 18:28 Completed Vital Signs Order Q 4-HR ASSESS Care 12/18/18 23:07 Active Z-Document. for Tele Applied ORDERED Care 12/18/18 23:07 Completed cxr [CHEST-PORTABLE] [RAD] Stat Exams 12/18/18 17:56 Completed A1C HGB W EST AVG GLUCOSE [CHEM] Stat Lab 12/18/18 18:06 Completed BLOOD CULTURE [BLDCUL] Stat Lab 12/18/18 18:22 Results CBC WITH ELECTRONIC DIFF [HEME] Stat Lab 12/18/18 18:06 Completed COMPREHENSIVE METABOLIC PANEL [CHEM] Stat Lab 12/18/18 18:06 Completed LACTATE, PLASMA [CHEM] Q3H Lab 12/18/18 18:22 Completed PRO B-NATRIURETIC PEPTIDE Stat Lab 12/18/18 18:06 Completed PROTIME WITH INR [COAG] Stat Lab 12/18/18 18:06 Completed PTT [COAG] Stat Lab 12/18/18 18:06 Completed TROPONIN T Stat Lab 12/18/18 18:06 Completed TSH Stat Lab 12/18/18 18:06 Completed URINALYSIS W/POSS RFLX CULT [URINALYSIS] Stat Lab 12/18/18 19:38 Completed URINE CULTURE [RM] Routine Lab 12/18/18 20:03 Received Albuterol 2.5MG/Ipratrop 0.5MG [Duoneb (A & A)] Med 12/18/18 17:57 Discontinued 6 ml INH NOW ONE Aspirin Med 12/18/18 17:59 Discontinued 325 mg PO NOW ONE CefTRIAXONE [Rocephin] 1 gm Med 12/18/18 19:07 Discontinued 0.9% Sodium Chloride Inj [Ns] 50 ml IV NOW Diltiazem [Cardizem] Med 12/18/18 17:49 Discontinued 15 mg IV NOW ONE Aerosol Treatments Routine Oth 12/18/18 17:57 Completed Aerosol Treatments Stat Oth 12/18/18 17:57 Completed Oxygen Device Stat Oth 12/18/18 18:28 Completed Telemetry [OM.EQ] Routine Oth 12/18/18 23:07 Active Transfer/Admit Order [TRANSFER] Routine Transfer 12/18/18 21:12 Completed Result Diagrams: 12/18/18 18:06 12/18/18 18:06 - EKG 1 Time of EKG reading by physician:: 17:46 EKG Read and Signed by:: Jose Chatman EKG Interpretation (*Must complete 3 of following elements*): Abnormal (Atrial fibrillation with rapid ventricular response; Marked ST abnormality, possible lateral subendocardial injury) Rate: 123 Rhythm: Atrial fibrillation with rapid ventricular response [place]: normal QRS: normal MI Interval: normal ST Wave: normal Comments: Abnormal ECG; ST depression V3-V6. - XRAY 1 XRAY Study: Chest (CHEST-PORTABLE - 12/18/2018 INDICATION: sob COMPARISON: 09/28/2018 FINDINGS: Stable left-sided pacemaker. Stable cardiomegaly and pulmonary vascular congestion. Lung volumes are lower. There is worsening right basilar infiltrate right greater than left. This may represent pneumonia. No pneumothorax or large pleural effusion. IMPRESSION: Lower lung volumes. Bibasilar infiltrates right greater than left suspicious for pneumonia.) - CONSULTS/PCP/HOSPITALIST Notification #1 *Consult/PCP/Hospitalist*: Dr. Pineda Time Discussed: 19:41 Consult Disposition: Admit (Hx, PE and pt care discussed, accepted.) Departure - Departure Date of Disposition Decision: 12/18/18 Time of Disposition Decision: 19:56 DIAGNOSIS: Atrial fibrillation with RVR Pneumonia Qualifiers: Pneumonia type: due to unspecified organism Laterality: bilateral Lung location: lower lobe of lung Qualified Code(s): J18.1 - Lobar pneumonia, unspecified organism Disposition: ADMITTED INPATIENT 09 Certified Medical Emergency: Emergent Condition: Stable - Critical Care Note This patient required my direct & personal management of CC.: No Attestation - Physician/ LEON Attestation Patient care was provided by Advanced Practice Provider:: No The physician spent face to face time with patient:: Yes Advanced Practice Provider documentation review:: Supervising physician onsite and consulted in the evaluation and care of this patient. The physician did have a face to face encounter with the patient. This chart was documented by the indicated scribe, (Barry Ny, Maryann) and accurately reflects the services I performed and decisions made by me, Jose Gerard MD, as attested by the provider's signature.
[2018-12-19] MEDS: TESSALON PO PRN (02:06)
[2018-12-19] MEDS: MUCINEX PO SCH ×3 (02:06→22:27)
[2018-12-19] MEDS ORDERED: TYLENOL PO PRN (02:07)
[2018-12-19] MEDS ORDERED: NITROGLYCERIN SL PRN (02:09)
[2018-12-19] MEDS: ATROVENT NEB INH SCH (03:10)
[2018-12-19] MEDS: XOPENEX NEB INH SCH (03:10)
[2018-12-19] MEDS: ZITHROMAX 500 MG/NS 500 MG/250 ML IVPB IV SCH (03:57)
[2018-12-19 04:04] LABS: CK INDEX 1.8 (0.0-2.5); CK-MB 4.59 ng/mL (0.0-5.0)
[2018-12-19 06:38] LABS: BASO# 0.02 X1000 (0.0-0.2); BASO% 0.2 % (0.0-0.8); EOS# 0.04 X1000 (0.0-0.7); EOS% 0.4 % (0.0-10.0); HEMATOCRIT 34.2 % (37.0-47.0); HEMOGLOBIN 11.3 g/dL (12.0-16.0); IMM GRAN# 0.06 X1000 (0.0-0.04); IMM GRAN% 0.7 % (0.0-0.5); LYMPH# 0.94 X1000 (1.2-3.4); LYMPH% 10.4 % (20.5-51.1); MCH 26.2 PG (27-31); MCV 79.2 FL (81-99); MONO# 0.88 X1000 (0.11-0.59); MONO% 9.7 % (1.7-9.3); MPV 11.1 FL (7.4-10.4); NEUT# 7.13 X1000 (1.4-6.5); NEUT% 78.6 % (42.2-75.2); PLT 159 X1000 (130-400); RBC 4.32 XMIL (4.2-5.4); RDW 17.7 % (11.5-14.5); WBC 9.07 X1000 (4.8-10.8)
--- NOTE | 2018-12-19 06:58 | EKG Report ---
Test Performed on : 12/19/2018 06:46:41 AM Test Reason : A-Fib,PNA Blood Pressure : / mmHG Vent. Rate : 108 BPM Atrial Rate : 093 BPM P-R Int : 000 ms QRS Dur : 090 ms QT Int : 336 ms P-R-T Axes : 000 -01 203 degrees QTc Int : 450 ms Atrial fibrillation. with rapid ventricular response. with frequent ventricular-paced complexes ST & T wave abnormality, consider inferior ischemia Abnormal ECG When compared with ECG of 18-DEC-2018 17:45, (Unconfirmed) Electronic ventricular pacemaker has replaced Atrial fibrillation. Confirmed by Nain WHALEY, Darren Lara ([id number]) on 12/21/2018 9:40:30 AM
[2018-12-19] MEDS ORDERED: HUMULIN R SUBQ SCH (07:00)
[2018-12-19 07:16] LABS: ALB/GLOB RATIO 1.3; ALBUMIN 3.8 g/dL (3.5-5.0); CALCIUM 8.9 mg/dL (8.8-10.2); CREATININE 1.4 mg/dL (0.5-0.9); POTASSIUM 3.4 mmol/L (3.5-5.1); TOTAL BILIRUBIN 1.01 mg/dL (0.20-1.00); TOTAL PROTEIN 6.8 g/dL (6.3-8.3)
[2018-12-19] MEDS: SYNTHROID PO SCH (07:43)
[2018-12-19] MEDS: VITAMIN B-12 PO SCH (08:01)
[2018-12-19] MEDS: IMDUR PO SCH (08:01)
[2018-12-19] MEDS: PEPCID PO SCH (08:01)
[2018-12-19] MEDS: CORDARONE PO SCH (08:01)
[2018-12-19] MEDS: ELIQUIS PO SCH ×2 (08:01→22:27)
[2018-12-19] MEDS: LASIX PO SCH (08:01)
[2018-12-19] MEDS: VITAMIN C PO SCH (08:01)
--- NOTE | 2018-12-19 08:09 | HISTORY AND PHYSICAL ---
PRIMARY CARE PROVIDER: Dr. Keith Varghese. CHIEF COMPLAINT: Cough and congestion. HISTORY OF PRESENT ILLNESS: Ms. Bell is an 88-year-old, female who reports that for 6 days now that she has had worsening cough and congestion. For 6 days now, has not felt well and has had congestion and now a productive cough with yellow sputum that has become thick. She also reports that she may have had a fever. She has reported that she has had chills. The patient states that she did see Dr. Varghese at his office a few days ago due to her worsening congestion and cough symptoms. He did increase her Lasix dose for 5 days, telling her to take two of them, from what I understand. She normally takes 40 mg daily. The patient did not report to me that she had been having any shortness of breath. She denied any headache, dizziness, chest pain, shortness of breath. She has had the productive cough. She denies any orthopnea or proximal nocturnal dyspnea. She also denies any worsening swelling or edema in her legs. She denies any abdominal pain, nausea, vomiting, or diarrhea. She denies any dysuria or urinary frequency. The patient states that she does sleep in a recliner but this is secondary to that she did have some thoracolumbar fractures and did undergo surgery for this, and this is why she sleeps in a recliner, she states. She also denies any recent diagnosis of pneumonia or taking any antibiotics. She also denies any recent admissions to the hospital within the last several months. Upon arrival to the ER, the patient's initial vital signs were temperature 98.2, heart rate 123, respirations 22, blood pressure 151/99, oxygen saturation was 95% on room air. Her EKG did show that she had atrial fibrillation with rapid ventricular response, at a rate of 123. The patient does have a history of chronic atrial fibrillation. She does take amiodarone and is on chronic anticoagulation with some Eliquis. The patient did have some mild leukocytosis with a white blood cell count of 12,330. She had elevated creatinine and BUN with a creatinine of 1.5 and a BUN of 23. The patient 's previous creatinine was 0.7. A chest x-ray performed in the ER did show lower lung volumes as well as bibasilar infiltrates that were greater on the right than the left, suspicious for pneumonia. In the ER, blood cultures were obtained. The patient was given initial antibiotic of Rocephin. She was also given a DuoNeb treatment as well as was given a one-time dose of Cardizem 50 mg IV for elevated heart rate in the 120s. Since that time, her heart rate has improved. The patient has been placed inpatient for admission. REVIEW OF SYSTEMS: A 14 point review of systems was conducted with the patient. All were negative except for pertinent positives mentioned above in the HPI. PAST MEDICAL HISTORY: 1. Coronary artery disease, status post cardiac stent placement x6. 2. History of myocardial infarction. 3. History of atrial fibrillation. 4. History of sick sinus syndrome. 5. Pacemaker placement. 6. Hypertension. 7. Hyperlipidemia. 8. Diabetes mellitus type 2. 9. Thyroid disease, status post thyroidectomy. 10. Gastroesophageal reflux disease. 11. Dyslipidemia. 12. Hypothyroidism. PAST SURGICAL HISTORY: 1. Cardiac stent placement x6. 2. Pacemaker placement. 3. Thyroidectomy. 4. Left ankle surgery. 5. Right total knee replacement. 6. Left hip replacement. 7. Cataract extraction. 8. Appendectomy. 9. Thoracolumbar back surgery. SOCIAL HISTORY: The patient is . She lives with her . He was present at bedside during my examination. There is no known past or present tobacco, alcohol, or illicit drug use. FAMILY HISTORY: Positive for hypertension and coronary artery disease. ALLERGIES: The patient has allergies to codeine, hydromorphone, inocencia, oxycodone, as well as ketamine. HOME MEDICATIONS: 1. Amiodarone 200 mg p.o. daily. 2. Eliquis 5 mg p.o. b.i.d. 3. Vitamin C 100 mg p.o. daily. 4. Lipitor 20 mg p.o. at bedtime. 5. Zebeta 5 mg p.o. at bedtime. 6. Vitamin B12 1000 mcg p.o. daily. 7. [*] mg p.o. daily. 8. Lasix 40 mg p.o. q.a.m. 9. Glimepiride 1 mg p.o. daily. 10. Imdur 30 mg p.o. daily. 11. Levothyroxine 125 mcg p.o. daily. 12. Losartan potassium 25 mg p.o. b.i.d. 13. Nitroglycerin 0.4 mg sublingual q.5 minutes p.r.n. for chest pain. 14. Klor-Con 20 mEq p.o. daily. 15. Ambien 5 mg p.o. at bedtime. DIAGNOSTIC DATA: White blood cell count 12,330, hemoglobin 11.5, hematocrit 34.9, platelet count is 173,000. PT 22.2, INR 1.8, PTT is 40.3. Sodium 131, potassium 4.1, chloride 91, serum bicarbonate is 25, BUN 23, creatinine 1.5, with a GFR of 33, glucose 89, calcium 9. Total bilirubin is 1.41, AST 16, ALT 12, alkaline phosphatase is 90. Troponin is less than 0.01. ProBNP is 1223. Plasma lactate is 1.4. TSH is 2.07. Urinalysis was obtained via clean catch. It was positive for trace blood and moderate leukocytes. It was negative for protein, glucose, ketones, nitrites, or bacteria. A chest x-ray showed low lung volume, bibasilar infiltrates with right greater than left, suspicious for pneumonia. PHYSICAL EXAMINATION: VITAL SIGNS: Temperature 98.2 degrees, heart rate 83, respirations 20, blood pressure is 115/88, oxygen saturation was 94% on room air. GENERAL: Ms. Bell is a pleasant, 88-year-old, female. She was resting on the ER stretcher. She was in no acute distress. She was awake, alert, and able to answer questions appropriately. HEENT: Head is atraumatic, normocephalic. Pupils equal, round, reactive to light, were 3 mm bilaterally and brisk. Oral mucosa was moist. Oropharynx was clear. NECK: Supple. Trachea midline. No JVD noted upon examination. CARDIOVASCULAR: The patient had S1-S2 present. No murmurs, gallops, or rubs appreciated, with an irregularly irregular rhythm with a rate that was in the 80s to 90s at this time. PULMONARY: The patient has symmetrical chest expansion bilaterally. Lung sounds in bilateral full hartman did have some slight rhonchi and wheezing noted, though she did have crackles in bilateral bases. This was worse on the right than the left. ABDOMEN: Soft, nontender, nondistended. Bowel sounds were present in all four quadrants and normoactive. EXTREMITIES: No cyanosis or edema noted. Pulse, motor, and sensory were intact in all extremities. Radial pulses and pedal pulses were 2+ bilaterally. INTEGUMENTARY: The patient's skin was pink, warm, and dry. NEUROLOGIC: The patient is alert and oriented to person, place, time, and situation. She is able to move all extremities. There are no focal neurological deficits noted. ASSESSMENT AND PLAN: 1. Bilateral pneumonia. The patient has not had a recent diagnosis of pneumonia and has not been recently hospitalized. We will continue treatment for community-acquired pneumonia with Rocephin and azithromycin. Blood cultures have been obtained. A sputum culture has been ordered as well. We will continue the aggressive pulmonary toilet with scheduled nebulizer treatments with Atrovent and Xopenex, incentive spirometry, frequent encouragement to turn, cough, and deep breathe. We will continue to follow her respiratory status closely. 2. Chronic atrial fibrillation. The patient states that she currently takes amiodarone for this. She has not missed any doses. Her heart rate was elevated in the emergency room. She received Cardizem 50 mg intravenous push. Since that time, her heart rate has improved. We will continue her regularly prescribed amiodarone as well as her anticoagulation with Eliquis, though we have adjusted the dosage at this time due to her acute kidney injury. 3. History of congestive heart failure. At this time, she does not appear to be in any exacerbation. She is not having reported worsened orthopnea, paroxysmal nocturnal dyspnea, edema, or shortness of breath. She has no jugular venous distention noted. We will continue her regularly prescribed medications. 4. History of coronary artery disease. We will continue with her regularly prescribed cardiac medications. 5. Diabetes mellitus type 2. The patient normally takes glimepiride, though she does have an acute kidney injury. Given this, we will hold this medication. We have placed her on sliding scale insulin. We will do pattern fingerstick blood sugars. 6. Acute kidney injury. This is of uncertain etiology. The patient did recently have an increase in her Lasix dosage that she was supposed to take for 5 days. She also does take other medications of glimepiride as well. At this time, we will continue to monitor this. We will avoid nephrotoxic medications and renally dose medications as necessary. 7. Asymptomatic bacteriuria. The patient does have some leukocytes noted in her urine, though she is asymptomatic. A urine culture has been ordered. We will continue to follow. 8. Deep vein thrombosis prophylaxis will be provided with Eliquis, though the dosage has been adjusted at this time given her acute kidney injury to 2.5 mg by mouth twice a day. 9. The patient will placed on the medical floor with telemetry. She will have vital signs every 4 hours. We will do strict intake and output, incentive spirometry. She will be on a diabetic and heart healthy diet. We will repeat a CBC, CMP, magnesium, as well as cardiac enzymes, and an electrocardiogram in the morning. Further orders and recommendations pending hospital course, diagnostic studies, and physician evaluation. Dictated by SHERMAN Soriano for Franki Pineda MD cc: MD Keith Lee MD
--- NOTE | 2018-12-19 08:47 | EKG Report ---
Test Performed on : 12/18/2018 5:45:12 PM Test Reason : SOB Blood Pressure : / mmHG Vent. Rate : 123 BPM Atrial Rate : 091 BPM P-R Int : 000 ms QRS Dur : 088 ms QT Int : 340 ms P-R-T Axes : 000 -08 153 degrees QTc Int : 486 ms Atrial fibrillation. with rapid ventricular response. Marked ST abnormality, possible lateral subendocardial injury Abnormal ECG When compared with ECG of 30-SEP-2016 06:46, Atrial fibrillation. has replaced Electronic atrial pacemaker Vent. rate has increased BY [address] more depressed in Anterior leads Unconfirmed Result
[2018-12-19] MEDS ORDERED: LEVOTHYROXINE SODIUM 125 MCG PO SCH (09:00)
[2018-12-19] MEDS: ALBUTEROL NEB INH PRN (19:50)
[2018-12-19] MEDS ORDERED: ROCEPHIN 1 GM in NS 50 ML IV SCH (20:00)
[2018-12-19] MEDS: LIPITOR PO SCH (22:27)
[2018-12-19] MEDS: ZEBETA PO SCH (22:27)
[2018-12-20] MEDS: ZITHROMAX 500 MG/NS 500 MG/250 ML IVPB IV SCH (03:45)
[2018-12-20] MEDS: SYNTHROID PO SCH ×2 (05:54→07:00)
[2018-12-20] MEDS: ALBUTEROL NEB INH PRN ×4 (07:52→19:07)
[2018-12-20] MEDS: AMARYL PO SCH (09:24)
[2018-12-20] MEDS: LASIX PO SCH (09:24)
[2018-12-20] MEDS: IMDUR PO SCH (09:24)
[2018-12-20] MEDS: VITAMIN C PO SCH (09:24)
[2018-12-20] MEDS: ZITHROMAX PO SCH (09:24)
[2018-12-20] MEDS: ELIQUIS PO SCH ×2 (09:24→20:15)
[2018-12-20] MEDS: MUCINEX PO SCH ×2 (09:24→20:15)
[2018-12-20] MEDS: KLOR-CON POWDER PACKET PO SCH (09:24)
[2018-12-20] MEDS: PEPCID PO SCH (09:24)
[2018-12-20] MEDS: CORDARONE PO SCH (09:24)
[2018-12-20] MEDS: COZAAR PO SCH ×2 (09:24→20:15)
[2018-12-20] MEDS: VITAMIN B-12 PO SCH (09:25)
[2018-12-20] MEDS: LIPITOR PO SCH (20:15)
[2018-12-20] MEDS: ZEBETA PO SCH (20:15)
[2018-12-20] MEDS: AMBIEN PO SCH (21:46)
[2018-12-20] MEDS: TESSALON PO PRN (21:46)
[2018-12-21] MEDS: TESSALON PO PRN ×3 (06:21→22:25)
[2018-12-21] MEDS: SYNTHROID PO SCH (06:21)
[2018-12-21 06:55] LABS: BASO# 0.02 X1000 (0.0-0.2); BASO% 0.3 % (0.0-0.8); EOS# 0.11 X1000 (0.0-0.7); EOS% 1.6 % (0.0-10.0); HEMATOCRIT 34.3 % (37.0-47.0); HEMOGLOBIN 11.1 g/dL (12.0-16.0); IMM GRAN# 0.24 X1000 (0.0-0.04); IMM GRAN% 3.6 % (0.0-0.5); LYMPH# 0.83 X1000 (1.2-3.4); LYMPH% 12.3 % (20.5-51.1); MCH 25.6 PG (27-31); MCHC 32.4 g/dL (33-37); MONO# 0.59 X1000 (0.11-0.59); MONO% 8.8 % (1.7-9.3); NEUT# 4.95 X1000 (1.4-6.5); NEUT% 73.4 % (42.2-75.2); PLT 180 X1000 (130-400); RBC 4.34 XMIL (4.2-5.4); RDW 17.6 % (11.5-14.5); WBC 6.74 X1000 (4.8-10.8)
[2018-12-21 07:36] LABS: CALCIUM 8.8 mg/dL (8.8-10.2); CREATININE 1.4 mg/dL (0.5-0.9); POTASSIUM 3.7 mmol/L (3.5-5.1)
[2018-12-21] MEDS: ALBUTEROL NEB INH PRN ×2 (08:02→19:15)
--- NOTE | 2018-12-21 08:35 | Diag Imaging Result Doc PS360 ---
EXAM: CHEST-2 VIEWS HISTORY: RLL pneumonia TECHNIQUE: Chest two views 12/18/2018 COMPARISON: None. FINDINGS: The lungs are well expanded on the current study. Near-complete clearing of the right basilar infiltrate. The pulmonary vessels are small. No pleural effusions. There is a left-sided pacemaker. IMPRESSION: 1.Near-complete clearing of the basilar infiltrates 2.Emphysema Electronically signed by Dieudonne Blanco 12/21/2018 8:33 AM
[2018-12-21] MEDS: ZITHROMAX PO SCH (08:49)
[2018-12-21] MEDS: VITAMIN C PO SCH (08:49)
[2018-12-21] MEDS: IMDUR PO SCH (08:49)
[2018-12-21] MEDS: PEPCID PO SCH (08:49)
[2018-12-21] MEDS: AMARYL PO SCH (08:49)
[2018-12-21] MEDS: MUCINEX PO SCH ×2 (08:49→21:28)
[2018-12-21] MEDS: COZAAR PO SCH ×2 (08:49→21:28)
[2018-12-21] MEDS: ELIQUIS PO SCH ×2 (08:50→21:28)
[2018-12-21] MEDS: VITAMIN B-12 PO SCH (08:50)
[2018-12-21] MEDS: CORDARONE PO SCH (08:50)
[2018-12-21] MEDS: KLOR-CON POWDER PACKET PO SCH (08:51)
[2018-12-21] MEDS: LIPITOR PO SCH (21:28)
[2018-12-21] MEDS: ZEBETA PO SCH (21:28)
[2018-12-21] MEDS: AMBIEN PO SCH (22:25)
[2018-12-22] MEDS: SYNTHROID PO SCH (06:11)
[2018-12-22 07:25] VITALS: BP 107/85
[2018-12-22] MEDS: COZAAR PO SCH ×2 (08:24→08:46)
[2018-12-22] MEDS: CORDARONE PO SCH (08:24)
[2018-12-22] MEDS: PEPCID PO SCH (08:24)
[2018-12-22] MEDS: KLOR-CON POWDER PACKET PO SCH (08:24)
[2018-12-22] MEDS: MUCINEX PO SCH (08:24)
[2018-12-22] MEDS: VITAMIN B-12 PO SCH (08:24)
[2018-12-22] MEDS: VITAMIN C PO SCH (08:24)
[2018-12-22] MEDS: ZITHROMAX PO SCH (08:24)
[2018-12-22] MEDS: AMARYL PO SCH (08:24)
[2018-12-22] MEDS: ELIQUIS PO SCH (08:25)
[2018-12-22] MEDS: IMDUR PO SCH (08:25)
[2018-12-22] MEDS: LASIX PO SCH (08:28)
[2018-12-22] MEDS ORDERED: FERGON PO SCH (09:00)
--- NOTE | 2018-12-22 15:52 | DISCHARGE SUMMARY ---
ADMISSION DATE: 12/18/2018 DISCHARGE DATE: 12/22/2018 FINAL DIAGNOSES: 1. Right lower lobe pneumonia. 2. Chronic atrial fibrillation with acute rapid ventricular response, resolved. 3. Essential hypertension. 4. Coronary artery disease. 5. Hypokalemia, replaced. 6. Type 2 diabetes mellitus with coronary disease. 7. Mixed hyperlipidemia. 8. Gastroesophageal reflux disease. 9. Osteoporosis, status post multilevel kyphoplasty. PRESENT ILLNESS: Mrs. Bell is an 88-year-old woman who was brought to the emergency room by ambulance because of worsening cough and congestion. Several days prior to admission she came to my office and seemed to have early exacerbation of heart failure and I increased her Lasix. She subsequently developed chills and cough productive of yellow sputum, although she denies shortness of breath or dyspnea. PHYSICAL EXAMINATION: Revealed temperature of 98.2, heart rate of 123, respirations 22, blood pressure 151/99, O2 saturation 95% on room air. EKG showed atrial fibrillation with rapid ventricular response. DATABASE: White blood count 12,300. Creatinine was up from a baseline of 1 to 1.5. Chest x-ray showed poor inspiratory effort with right basilar infiltrate. HOSPITAL COURSE: Physical examination revealed a pleasant, cooperative elderly woman in no distress. HEENT exam was unremarkable. Neck was supple with no JVD. Cardiac exam with irregularly irregular rhythm with heart rate varying from 80 to 110. No murmurs or gallops were appreciated. Lung exam revealed a few crackles in both bases, greater on the right side. Extremities had no edema. She was admitted with diagnoses of pneumonia and rapid atrial fibrillation. She was given some Cardizem to slow her heart rate and admitted to the medical floor. She was treated with azithromycin and Rocephin initially. Due to her history of congestive heart failure she was not vigorously rehydrated. With antibiotics her cough improved and her white blood count returned to normal. Her chemistry profile remained relatively stable with a BUN of 30 and creatinine of 1.4, although her potassium improved to normal with replacement. Thyroid function tests were normal. Hemoglobin A2c was 5.5%. At the time of discharge, she is active and ambulatory and eager to return home. She has had five days of oral Zithromax and I figure this is adequate treatment for her pneumonia. Followup chest x-ray showed marked improvement. She is discharged home in improved condition. She is to return to my office in 8 to 14 days for transition of care followup. DISCHARGE MEDICINES: Ferrous gluconate 240 mg daily with vitamin C, Tessalon 100 mg every six hours as needed for cough, atorvastatin 20 mg at bedtime, Eliquis 5 mg twice a day, potassium chloride 20 mEq daily, Ambien 5 mg at bedtime, amiodarone 200 mg daily, acetaminophen 650 mg q six hours as needed for pain or fever, furosemide 40 mg q a.m., famotidine 20 mg daily, glimepiride 1 mg daily, Isosorbide mononitrate 30 mg q a.m., losartan 25 mg twice a day, nitroglycerin 0.4 mg sublingual every five minutes as needed for chest pain, ascorbic acid 500 mg daily, vitamin B12 1000 mcg daily, levothyroxine 125 mcg daily. cc: Keith Varghese MD
== END 2018-12-22 09:31 | disposition home or self-care (01) | DRG 194 ==
LOC: SUPCPDRO → ED 17:35 → 4N 21:21 → SUATTDRO 21:21 → 4N 12-20 10:28
PROVIDERS: ADMIT Internal Medicine; ATTEND Internal Medicine
CPT/HCPCS: 71010; 71020; 71045; 71046; 80048; 80053; 81001; 82550; 82553; 82948; 83036; 83605; 83735; 83880; 84443; 84484; 85025; 85610; 85730; 87040; 87088; 93005; 93010; 94640; 94761; 94799; 96365; 96375; 99285; A9270; J0456; J0696; XXXXX